=== PATIENT | female | born 1970 | race African-American/Black ===

== ENCOUNTER 2020-05-18 13:59 | Outpatient (REF) | payer OTHER, SELFPAY ==
--- NOTE | 2020-05-18 14:05 | XR_ITS ---
EXAMINATION: XR HIP, RIGHT CLINICAL INFORMATION: Pain COMPARISON: None TECHNIQUE: Two views of the right hip. FINDINGS: Bones and soft tissues are normal. No fracture. Alignment is anatomic. Hip joint space is maintained. XR/XR hip RT min 2V IMPRESSION: Normal right hip.
== END 2020-05-18 14:00 | disposition home or self-care (01) ==
LOC: HO.HMGCX 13:59
PROVIDERS: PCP Internal Medicine; Visit Provider Nurse Practitioner Family
DX: M25.551 Pain in right hip (principal)
CPT/HCPCS: 73502

== ENCOUNTER → 2020-09-28 15:48 | Outpatient (BNVA) | payer OTHER, SELFPAY | PROVIDERS: PCP Internal Medicine; Visit Provider Internal Medicine Pulmonary Disease ==

== ENCOUNTER → 2020-11-16 10:08 | Outpatient (BNVA) | payer OTHER, SELFPAY | PROVIDERS: PCP Internal Medicine; Visit Provider Internal Medicine | DX: S00.03XA Contusion of scalp, initial encounter (principal); W18.31XA Fall on same level due to stepping on an object, initial encounter | CPT/HCPCS: 99202 ==

== ENCOUNTER → 2021-01-07 14:38 | Outpatient (BNVA) | payer OTHER, SELFPAY | PROVIDERS: PCP Internal Medicine; Referring Provider Internal Medicine; Visit Provider Internal Medicine Cardiovascular Disease | DX: R00.2 Palpitations (principal); E78.5 Hyperlipidemia, unspecified; E06.3 Autoimmune thyroiditis; J45.20 Mild intermittent asthma, uncomplicated; Z91.09 Other allergy status, other than to drugs and biological substances; Z88.5 Allergy status to narcotic agent; Z91.011 Allergy to milk products; Z79.899 Other long term (current) drug therapy | CPT/HCPCS: 93005 ==

== ENCOUNTER 2021-01-14 09:02 | Outpatient (REF) | payer OTHER, SELFPAY ==
[2021-01-14 11:46] LABS: Cholesterol 243 mg/dL; HDL Cholesterol 72 mg/dL; LDL Cholesterol Calculated 160 mg/dl; Triglycerides 56 mg/dL
[2021-01-14 12:08] LABS: Free T4 (Free Thyroxine) 0.84 ng/dL (0.71-1.85); Thyroid Stimulating Hormone 2.89 uIU/mL (0.32-4.0)
[2021-01-15 09:37] LABS: Thyroid Peroxidase Antibodies 336 IU/mL (<9)
== END 2021-01-14 09:03 | disposition home or self-care (01) ==
LOC: HO.HMGCLDS 09:02
PROVIDERS: PCP Internal Medicine; Visit Provider Internal Medicine
DX: J45.20 Mild intermittent asthma, uncomplicated (principal); E06.3 Autoimmune thyroiditis; E78.5 Hyperlipidemia, unspecified; E03.9 Hypothyroidism, unspecified
CPT/HCPCS: 36415; 80061; 84439; 84443; 86376

== ENCOUNTER → 2021-01-29 11:23 | Outpatient (BNVA) | payer OTHER, SELFPAY | PROVIDERS: PCP Internal Medicine; Visit Provider Internal Medicine Pulmonary Disease ==

== ENCOUNTER 2021-02-17 07:56 | Outpatient (REF) | payer OTHER, SELFPAY ==
--- NOTE | ~2021-02-17 | MM_ITS ---
EXAMINATION: MM SCREENING DIGITAL BREAST TOMOSYNTHESIS, BILATERAL CLINICAL INFORMATION: Screening. Asymptomatic. The lifetime risk of breast cancer based on the Tyrer-Cuzick Model is 20.9%. Additional annual screening with breast MRI may be of benefit in women with a Score of 20% or greater. COMPARISON: Mammography: June 13, 2020 and studies dating back to June 17, 2014 TECHNIQUE: Digital breast tomosynthesis is performed in both the craniocaudal and mediolateral oblique views along with computer-aided detection (CAD). Synthesized 2D images are generated from the tomosynthesis. FINDINGS: The breasts are heterogeneously dense, which may obscure small masses (ACR BI-RADS breast composition Category c). There are no significant masses, abnormal calcifications, or other abnormalities. MM/MM tomosynthesis screening BI IMPRESSION: There are no significant changes from prior study. ASSESSMENT: BI-RADS 1: Negative RECOMMENDATION: Routine annual mammography screening. This patient's information was entered into a reminder system with a target due date for their next mammogram.
== END 2021-02-17 07:57 | disposition home or self-care (01) ==
LOC: HO.MAMMO 07:56
PROVIDERS: PCP Internal Medicine; Visit Provider Obstetrics & Gynecology
DX: Z12.31 Encounter for screening mammogram for malignant neoplasm of breast (principal)
CPT/HCPCS: 77063; 77067

== ENCOUNTER → 2021-05-12 16:05 | Outpatient (BNVA) | payer OTHER, SELFPAY | PROVIDERS: PCP Internal Medicine; Visit Provider Internal Medicine Pulmonary Disease ==

== ENCOUNTER → 2021-05-27 15:11 | Outpatient (BNVA) | payer OTHER, SELFPAY | PROVIDERS: PCP Internal Medicine; Referring Provider Internal Medicine; Visit Provider Internal Medicine Cardiovascular Disease ==

== ENCOUNTER 2021-07-22 16:00 | Outpatient (RCR) | payer OTHER, SELFPAY ==
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
== END 2021-08-19 15:35 | disposition home or self-care (01) ==
LOC: HO.PT 16:00
PROVIDERS: PCP Internal Medicine; Visit Provider Internal Medicine
DX: M54.50 Low back pain, unspecified (principal); M79.604 Pain in right leg; Z87.828 Personal history of other (healed) physical injury and trauma
CPT/HCPCS: 97110; 97112; 97161

== ENCOUNTER → 2021-10-13 15:32 | Outpatient (BNVA) | payer OTHER, SELFPAY | PROVIDERS: PCP Internal Medicine; Visit Provider Internal Medicine Pulmonary Disease | DX: Z13.89 Encounter for screening for other disorder (principal) ==

== ENCOUNTER 2022-01-01 07:51 | Outpatient (REF) | payer OTHER, SELFPAY ==
[2022-01-01 09:18] LABS: Alanine Aminotransferase 15 U/L (0-31); Anion Gap 9 (12-20); Aspartate Amino Transferase 15 U/L (5-31); Blood Urea Nitrogen 14 mg/dL (9-16); Calcium 9.6 mg/dL (8.4-10.2); Carbon Dioxide 29 mmol/L (22-29); Chloride 107 mmol/L (96-108); Cholesterol 267 mg/dL; Estimated Glomerular Filt Rate > 60; Glucose Fasting 91 mg/dL (60-99); HDL Cholesterol 92 mg/dL; LDL Cholesterol Calculated 165 mg/dl; Potassium 4.3 mmol/L (3.3-5.1); Sodium 141 mmol/L (135-145); Triglycerides 51 mg/dL
[2022-01-01 10:02] LABS: Thyroid Stimulating Hormone 4.86 uIU/mL (0.32-4.0)
[2022-01-01 10:33] LABS: Vitamin D 25-OH Total 9.6 ng/mL (>30)
[2022-01-03 17:26] LABS: Thyroid Peroxidase Antibodies 425 IU/mL (<9)
== END 2022-01-01 07:52 | disposition home or self-care (01) ==
LOC: HO.LAB 07:51
PROVIDERS: PCP Internal Medicine; Visit Provider Internal Medicine
DX: E03.9 Hypothyroidism, unspecified (principal); E78.5 Hyperlipidemia, unspecified; E06.3 Autoimmune thyroiditis; Z78.0 Asymptomatic menopausal state
CPT/HCPCS: 36415; 80048; 80061; 82306; 84439; 84443; 84450; 84460; 86376

== ENCOUNTER 2022-02-28 11:19 | Outpatient (REF) | payer OTHER, SELFPAY ==
--- NOTE | ~2022-02-28 | MM_ITS ---
EXAMINATION: MM SCREENING DIGITAL BREAST TOMOSYNTHESIS, BILATERAL CLINICAL INFORMATION: Screening. Asymptomatic. The lifetime risk of breast cancer based on the Tyrer-Cuzick Model is 19.8%. COMPARISON: Mammography: February 17, 2021 and studies dating back to April 03, 2010 TECHNIQUE: Digital breast tomosynthesis is performed in both the craniocaudal and mediolateral oblique views along with computer-aided detection (CAD). Synthesized 2D images are generated from the tomosynthesis. FINDINGS: The breasts are heterogeneously dense, which may obscure small masses (ACR BI-RADS breast composition Category c). There are no significant masses, abnormal calcifications, or other abnormalities. MM/MM tomosynthesis screening BI IMPRESSION: No mammographic evidence of malignancy. ASSESSMENT: BI-RADS 1: Negative RECOMMENDATION: Routine annual mammography screening. This patient's information was entered into a reminder system with a target due date for their next mammogram.
== END 2022-02-28 11:20 | disposition home or self-care (01) ==
LOC: HO.MAMMO 11:19
PROVIDERS: PCP Internal Medicine; Visit Provider Internal Medicine
DX: Z12.31 Encounter for screening mammogram for malignant neoplasm of breast (principal)
CPT/HCPCS: 77063; 77067

== ENCOUNTER 2022-06-13 11:47 | Outpatient (REF) | payer OTHER, SELFPAY ==
[2022-06-13 12:51] LABS: Influenza A PCR NEGATIVE (Negative); Influenza B PCR NEGATIVE (Negative); Resp Syncy Virus RNA Qual PCR NEGATIVE (Negative); SARS COV2 PCR INHOUSE NEGATIVE (Negative)
== END 2022-06-13 11:48 | disposition home or self-care (01) ==
LOC: HO.LNP 11:47
PROVIDERS: Visit Provider Emergency Medicine
DX: Z20.822 Contact with and (suspected) exposure to COVID-19 (principal)
CPT/HCPCS: 0241U

== ENCOUNTER → 2022-07-18 09:23 | Outpatient (BNVA) | payer OTHER, SELFPAY | PROVIDERS: PCP Internal Medicine; Visit Provider Nurse Practitioner Family | DX: R00.2 Palpitations (principal) | CPT/HCPCS: 93005 ==

== ENCOUNTER 2022-07-23 08:31 | Outpatient (REF) | payer OTHER, SELFPAY ==
[2022-07-23 09:44] LABS: Cholesterol 283 mg/dL; HDL Cholesterol 86 mg/dL; LDL Cholesterol Calculated 187 mg/dl; Triglycerides 53 mg/dL
[2022-07-23 10:00] LABS: Free T4 (Free Thyroxine) 0.81 ng/dL (0.71-1.85); Thyroid Stimulating Hormone 4.11 uIU/mL (0.32-4.0); Vitamin D 25-OH Total 21.7 ng/mL (>30)
[2022-07-25 17:28] LABS: Thyroid Peroxidase Antibodies 325 IU/mL (<9)
== END 2022-07-23 08:32 | disposition home or self-care (01) ==
LOC: HO.LAB 08:31
PROVIDERS: PCP Internal Medicine; Visit Provider Internal Medicine
DX: E03.9 Hypothyroidism, unspecified (principal); E78.5 Hyperlipidemia, unspecified; E06.3 Autoimmune thyroiditis; E55.9 Vitamin D deficiency, unspecified
CPT/HCPCS: 36415; 80061; 82306; 84439; 84443; 86376

== ENCOUNTER → 2022-08-02 10:34 | Outpatient (REF) | payer OTHER, SELFPAY ==
--- NOTE | 2022-08-02 10:36 | HM_ITS ---
Conclusion: 1. Patient was monitored for total period of 2 days and 23 hours 2. Baseline rhythm was normal sinus rhythm with average heart of 80 beats per minute 3. No significant pauses or bradycardia noted 4. Total of 6464 PVCs accounting for 1.9% of total beats account for frequent PVCs 5. Patient reported 14 events, with symptoms of fluttering in chest that correlated with isolated PVCs MTDD
== END ==
LOC: HO.CARD 10:34
PROVIDERS: PCP Internal Medicine; Visit Provider Nurse Practitioner Family
DX: R00.2 Palpitations (principal)
CPT/HCPCS: 93242

== ENCOUNTER → 2022-08-24 14:17 | Outpatient (BNVA) | payer OTHER, SELFPAY | PROVIDERS: PCP Internal Medicine; Referring Provider Internal Medicine; Visit Provider Nurse Practitioner Family | DX: Z13.89 Encounter for screening for other disorder (principal) ==

== ENCOUNTER → 2022-09-19 07:39 | Outpatient (REF) | payer OTHER, SELFPAY ==
--- NOTE | 2022-09-19 07:57 | CA_ITS ---
Acquisition Time: 2022-09-19 08:49:51 Total Exercise Time: 00:08:08 Test Indications: PVCS Medications: Protocol: FREDI Max HR: 169 BPM 101% of Pred: 167 BPM Max BP: 158/086 mmHG Max Work Load: 10.1 METS Exercise stress test with exercise 8 min 8 sec of Freid protocol, achieving 101% of MPHR, with mild sob, no chest discomfort, without arrythmia, with normotensive response to exercise, without EKG changes meeting criteria for ischemia. Test reviewed with Dr Brown. Referred By: Kassie Cruz Overread By: KASSIE CRUZ
--- NOTE | 2022-09-19 07:57 | CA_ITS ---
Transthoracic Echocardiogram Patient (Last, First, Middle): Kristin Teresa, Gender: Female Date of : 1970 Age: 52 Procedure Date: 09/19/2022 Procedure Type: Transthoracic Echocardiogram Location: OP Height: 162.56 cm Weight: 64.86 kg BSA: 1.70 m2 Heart Rate: 58 bpm BP: 110 / 70 mmHg Batt Machine Operator: NISA Referring MD: Kassie Cruz LITHOGRAPHY CONTACT WORKER-Hailey Symptoms: I49.3 - Ventricular premature depolarization Study Quality: Adequate ECG Rhythm: Bradycardia Conclusions: - The left ventricular systolic function is normal. The calculated ejection fraction is 59% by biplane method. - No obvious valvular pathology seen on this study. Findings Left Ventricle Normal left ventricular cavity size. There is normal left ventricular wall thickness. The left ventricular systolic function is normal. The calculated ejection fraction is 59% by biplane method. There is no evidence of regional wall motion abnormalities. Diastolic function is normal for age. LV peak GLS -17.8%. Right Ventricle Normal right ventricular cavity size and systolic function. Atria Both atria are normal in size. Aortic Valve There is a normal trileaflet aortic valve. There is no aortic valve stenosis. There is no aortic valve regurgitation. Mitral Valve The mitral valve appears normal. There is no mitral valve regurgitation. There is no mitral valve stenosis. Pulmonic Valve The pulmonic valve is likely normal. Tricuspid Valve Normal tricuspid valve structure. There is trace tricuspid valve regurgitation. There is no evidence of pulmonary hypertension. Great Vessels The aortic annulus, sinuses of valsalva, and asc aorta are normal in size. Venous The inferior vena cava is normal in size and collapses greater than 50% with inspiration. Pericardium/Pleural There is no evidence of pericardial effusion. Prior Study Comparison No significant change compared to prior study dated: 11/07/2016. Recommendations, Care & Conclusions No obvious valvular pathology seen on this study. Measurements 2D Linear Measurements IVSd: 0.92 0.6-0.9/0.6-1.0 cm LVIDd: 4.32 3.9-5.3/4.2-5.9 cm LVIDd Index: 2.54 2.4-3.2/2.2-3.1 cm/m2 LVIDs: 2.81 2.0-3.6 cm LVPWd: 0.92 0.7-1.1 cm LA Diam: 3.30 2.7-3.8/3.0-4.0 cm LAIDs Index: 1.94 1.5-2.3 cm/m2 LV Mass: 159.13 67-162/88-224 g LV Mass Index: 93.61 43-95/49-115 g/m2 LVOT Diam: 2.00 3.0+(-)1.3 cm 2D Systolic Function EF 4C: 58.00 >55% EF 2C: 57.30 >55% EF BiP: 59.20 >55% Mitral Valve MV Pk E: 0.59 MV PK A: 0.53 MV Decel Time: 141.00 E/A: 1.10 E'Lateral: 10.00 E'Medial: 8.59 E/E' Med: 6.90 E/E' Lat: 5.90 PHT: 41.00 MVA PHT: 5.37 Decel Amador: 4.20 Aortic Valve AoV Pk Dao: 1.16 AoV Pk Grad: 5.00 MATILDE: 2.23 LVOT LVOT Pk Dao: 0.82 LVOT Mn Dao: 0.59 LVOT VTI: 0.20 LVOT Pk Grad: 3.00 LVOT Mn Grad: 2.00 LVOT Diam: 2.00 LVOT Area: 3.14 Diastolic Function MV Pk E: 0.59 MV Pk A: 0.53 E/A: 1.10 E'Medial: 8.59 E/E' Med: 6.90 E' Laterial: 10.00 E/E' Lat: 5.90 Right Ventricle TAPSE (mm): 18.20 TVS' Dao: 9.90 Tricuspid Valve TR Pk Dao: 1.80 TR Pk Grad: 13.00 RA Press: 3.00 RVSP: 16.00 Great Vessels Aorta Sinus of Valsalva: 2.80 2.0-3.5 cm Ao Asc: 2.60 2.1-3.4 cm Pulmonary Valve PV Pk Dao: 0.83 Peak PV Grad: 3.00 Updated in Other Vendor System with Status of Final Ananth Hidalgo MD electronically signed on 09/19/2022 8:55:20 AM with status of Final
== END ==
LOC: HO.CARD 07:39
PROVIDERS: PCP Internal Medicine; Visit Provider Nurse Practitioner Family
DX: I49.3 Ventricular premature depolarization (principal); R00.2 Palpitations
CPT/HCPCS: 93017; 93306; 93356

== ENCOUNTER 2022-10-22 08:02 | Outpatient (REF) | payer OTHER, SELFPAY ==
[2022-10-22 08:13] LABS: MANUAL DIFF FLAG NO
[2022-10-22 08:32] LABS: Basophils Percent Auto 1.1 % (0-2); Eosinophils Percent Auto 0.8 % (0-4); Hematocrit 39.3 % (37.0-47.0); Hemoglobin 12.4 g/dl (12.0-16.0); Imm Gran Abs Auto 0.01 X10*3/uL (0.00-0.03); Imm Gran Pct Auto 0.3 % (0.0-0.4); Lymphocytes Absolute Auto 1.7 X10*3/uL (1.2-4.9); Lymphocytes Percent Auto 45.3 % (20-40); Mean Corpuscular HGB Conc 31.6 g/dl (31.0-35.0); Mean Corpuscular Hemoglobin 26.4 pg (27.0-33.0); Mean Corpuscular Volume 83.6 fL (80.0-98.0); Mean Platelet Volume 11.1 fL (9.4-12.3); Monocytes Absolute Auto 0.3 X10*3/uL (0.1-1.2); Monocytes Percent Auto 8.2 % (2-11); Neutrophils Absolute Auto 1.6 x10*3/uL (2.0-8.3); Neutrophils Percent Auto 44.3 % (45-73); Platelet Count 191 X10*3/uL (160-400); Red Cell Distribution Width 14.2 % (11.0-16.0); White Blood Count 3.6 X10*3/uL (4.8-10.8)
[2022-10-22 09:06] LABS: Alanine Aminotransferase 16 U/L (0-31); Anion Gap 10 (12-20); Aspartate Amino Transferase 15 U/L (5-31); Blood Urea Nitrogen 17 mg/dL (9-16); Calcium 9.2 mg/dL (8.4-10.2); Carbon Dioxide 28 mmol/L (22-29); Chloride 110 mmol/L (96-108); Cholesterol 198 mg/dL; Estimated Glomerular Filt Rate 59; Glucose Fasting 89 mg/dL (60-99); HDL Cholesterol 76 mg/dL; LDL Cholesterol Calculated 115 mg/dl; Potassium 4.5 mmol/L (3.3-5.1); Sodium 143 mmol/L (135-145); Triglycerides 36 mg/dL
[2022-10-22 09:22] LABS: Free T4 (Free Thyroxine) 0.89 ng/dL (0.71-1.85); Thyroid Stimulating Hormone 4.04 uIU/mL (0.32-4.0); Vitamin D 25-OH Total 24.9 ng/mL (>30)
[2022-10-24 13:23] LABS: Thyroid Peroxidase Antibodies 415 IU/mL (<9)
== END 2022-10-22 08:03 | disposition home or self-care (01) ==
LOC: HO.LAB 08:02
PROVIDERS: PCP Internal Medicine; Visit Provider Internal Medicine
DX: E06.3 Autoimmune thyroiditis (principal); E55.9 Vitamin D deficiency, unspecified; E78.5 Hyperlipidemia, unspecified; R00.2 Palpitations; E03.9 Hypothyroidism, unspecified
CPT/HCPCS: 36415; 80048; 80061; 82306; 84439; 84443; 84450; 84460; 85025; 86376

== ENCOUNTER 2022-10-25 12:46 | Outpatient (AMB) | payer OTHER, SELFPAY ==
--- NOTE | 2022-10-25 13:40 | A.OFFPC_ITS ---
Vital Signs 10/25/22 13:50 Height 5 ft 4 in Weight 142 lb 6 oz BMI 24.4 BP 110/74 Blood Pressure Location Rt brachial Position Sitting Pulse 72 Pulse Source Pulse Oximeter Pulse Oximetry (%) 100 Oxygen Delivery Method Room Air Intake Visit Reasons: 3m ffup lipids, thyroid after labs done Intake Note: Pt is here today for her 3 months f/u thyroid Allergies codeine [CODEINE] Allergy (Unknown, Verified 06/27/23 10:19) HALLUCINATION lactose [LACTOSE] Allergy (Unknown, Verified 06/27/23 10:19) DIARRHEA Medication List - Last Reconciled 09/03/23 by Trudi Duron MD albuterol sulfate 90 mcg/actuation 2 puffs inhalation Q4-6H PRN diazepam 2 mg PO .30 min before flying PRN ergocalciferol (vitamin D2) 1,250 mcg PO QWEEK 3 months fexofenadine 180 mg PO DAILY PRN fluticasone propion-salmeterol 230-21 mcg/actuation (Advair HFA) 2 puffs inhalation Q12H fluticasone propionate 220 mcg/actuation (Flovent HFA) 2 puffs inhalation BID 30 days ibuprofen 800 mg PO TID inhalational spacing device (InspiraChamber spacer) As directed ipratropium-albuterol 0.5 mg-3 mg(2.5 mg base)/3 mL 3 mL inhalation QID PRN ipratropium-albuterol 0.5 mg-3 mg(2.5 mg base)/3 mL 3 mL inhalation QID PRN ketorolac 10 mg PO TID PRN 5 days levothyroxine 25 mcg PO DAILY lidocaine 5% 1 patch topical DAILY methocarbamol 750 mg PO BEDTIME PRN rosuvastatin 5 mg PO 3XW 3 months Tobacco use date assessed: 10/25/22 HPI 3m ffup lipids, thyroid after labs done HPI Details 53-year-old lady here today for follow-u p on her hypothyroidism, has Victorina's thyroiditis, and hyperlipidemia. Has been compliant with taking her medications, no complaints at present time. [facility] Medical History (Updated 09/03/23 @ 18:38 by Trudi Duron MD) Premature ventricular beat Low back pain radiating to right lower extremity Victorina's thyroiditis Flying phobia Mild intermittent asthma Environmental and seasonal allergies Dyslipidemia Surgical History No pertinent past surgical history Family History Mother HTN (hypertension) Breast cancer Brother Renal failure Sister Rheumatoid arthritis Substance abuse Mental health disorder Substance use disorder Father Unknown family medical history Social History Housing: House Alcohol intake: never Patient Tobacco Use Status: Never used Tobacco e-Cigarette/Vaping Use: Never Used service: No Current occupational status: employed Cognitive needs: No Hearing needs: No Vision needs: Yes Questionnaire PHQ-9 Over the last 2 weeks, how often have you been bothered by any of the following problems? 1. Little interest or pleasure in doing things: not at all 2. Feeling down, depressed, or hopeless: not at all 3. Trouble falling or staying asleep, or sleeping too much: not at all 4. Feeling tired or having little energy: not at all 5. Poor appetite or overeating: not at all 6. Feeling bad about yourself - or that you are a failure or have let yourself or your family down: not at all 7. Trouble concentrating on things, such as reading the newspaper or watching television: not at all 8. Moving or speaking so slowly that other people could have noticed. Or the opposite - being so fidgety or restless that you have been moving around a lot more than usual: not at all 9. Thoughts that you would be better off or of hurting yourself in some way: not at all Total score: 0 Depression Screening Interpretation: Negative 12018 - PHQ-9 Billing: Yes Source: Developed by Drs. Bala Torres, Leni Meadows, Raudel Sauer and colleagues, with an educational florecita from [employer]. Thrive Questionnaire Declines Thrive assessment: No Date Thrive assessed: 10/25/22 I am a: Patient What is your living situation today?: I have a steady place to live Within the past 12 months, did the food you bought not last and you didn't have the money to get more?: Never true Within the past 12 months, did you worry whether your food would run out before you got money to buy more?: Never true Do you have trouble paying for medicines?: No Do you have trouble getting transportation to medical appointments?: No Do you have trouble paying your heating and electricity bill?: No Do you have trouble taking care of your child, family member or friend?: No Do you have trouble with day-to-day activities such as bathing, preparing meals, shopping, managing finances, etc.?: No Are you currently unemployed and looking for a job?: No Are you interested in more education?: No AUDIT C Alcohol Use Questionnaire (AUDIT-C) 1. How often do you have a drink containing alcohol?: Never Total Score: 0 CARLOS-7 AMB Questionnaire CARLOS-7 Date CARLOS - 7 assessed: 10/25/22 Feeling nervous, anxious, or on edge: 0 = Not at all Not being able to stop or control worryin = Not at all Worrying too much about different things: 0 = Not at all Trouble relaxin = Not at all Being so restless that it is hard to sit still: 0 = Not at all Becoming easily annoyed or irritable: 0 = Not at all Feeling afraid as if something awful might happen: 0 = Not at all Total CARLOS-7 score (0-4 normal; 5-9 mild; 10-14 moderate; 15-21 severe): 0 Source: Developed by Drs. Bala Torres, Leni Meadows, Raudel Sauer and colleagues, with an educational florecita from [employer]. CARLOS-7 Assessment Billing CAROLS-7 Assessment Tool: CARLOS-7 Assessment 71277 Review of Systems Const Denies fatigue, Denies lethargy and Denies malaise Eyes Denies blurry vision ENT Denies nasal congestion and Denies post nasal drip Card Denies chest pain, Denies pedal edema, Denies dyspnea and Denies orthopnea Resp Denies cough, Denies excessive phlegm production, Denies dyspnea and Denies wheezing GI Denies abdominal pain and Denies heartburn Denies abnormal menses, Denies hematuria, Denies urinary frequency, Denies genital lesions, Denies dysuria and Denies urinary incontinence Musc Denies myalgias, Denies arthralgias and Denies joint swelling Skin/Breast Denies rash Neuro Denies seizure-like activity and Denies Sensory deficit (Neuro) Psych Reports no additional complaints Endo Denies fatigue and Denies heat intolerance Randy/Lymph Denies easy bruising Aller/Immun Denies seasonal rhinorrhea and Denies wheezing Physical exam (Primary Care) Vital Signs: Last Vital Signs Pulse 72 10/25/22 13:50 BP 110/74 10/25/22 13:50 Pulse Ox 100 10/25/22 13:50 Oxygen Delivery Method Room Air 10/25/22 13:50 BMI result Body Mass Index 24.4 Tobacco/Smoking Status: Tobacco use Status Tobacco use date assessed 10/25/22 10/25/22 13:45 Patient Tobacco Use Status Never used Tobacco 10/25/22 13:41 e-Cigarette/Vaping Use Never Used 10/25/22 13:41 PHQ-9: PHQ-9 Score PHQ-9: Total score 0 10/25/22 14:26 Depression Screening Interpretation: Negative Thrive Assessment: Date of Thrive Assessment Date Thrive assessed 10/25/22 10/25/22 13:48 Const Other: Alert oriented x3, no acute distress, ambulatory with normal gait Orientation/consciousness: patient oriented x3 [facility] Head: Yes normocephalic Eyes General: appearance normal, both eyes and all related structures Neck Other: Supple, no lymphadenopathy, thyroid gland nontender nonpalpable Resp Effort & Inspection: normal respiratory effort and able to speak in complete sentences Auscultation: clear to auscultation bilaterally Cardio Other: S1-S2 present regular rate and rhythm GI Palpation (GI): Soft to palpation, nontender and no guarding Auscultation: normal bowel sounds Back/Spine/Pelvis Back: No back tenderness Skin General skin exam: no rashes or lesions noted Neuro General: patient oriented x3, gait normal, moves all extremities, Normal light touch and pain sensation and no focal motor deficits Sensory Exam: No Sensory deficit (Neuro) Extrem General: Yes full ROM, Yes no joint enlargement, Yes no pedal edema, Yes no calf tenderness and Yes normal gait Psych Appearance: grossly normal and well kempt Mental Status: mental status grossly normal Speech and movement: Normal speech and movement present Affect: normal affect Results Reviewed Results Reviewed: RUN: 09/03/23 0455 PAGE 1 [facility] [address] [place] [id number] Structural Steel Detailer: Edgar Cummings M.D. Specimen Inquiry Name: Kristin Teresa Age/Sex: 53/F : 1970 Unit#: [id number] Attend Dr: Nikolas Almanza MD Re06/25/23 Status: [facility]P [facility] SPEC : [id number] HENRY: 06/25/23 STATUS: COMP REQ : [id number] RECD: 06/25/[address] [facility] [address]: Douglas Ya COMP: 06/25/23 ENTERED: 06/25/23 [facility] DR: Trudi Duron MD ORDERED: CBC Auto Diff Test Result Flag Reference WBC 4.0 L 4.8-10.8 X10*3/uL RBC 4.83 4.20-5.50 X10*6/uL HGB 12.8 12.0-16.0 g/dl HCT 40.1 37.0-47.0 % MCV 83.0 80.0-98.0 fL MCH 26.5 L 27.0-33.0 pg MCHC 31.9 31.0-35.0 g/dl RDW 14.3 11.0-16.0 % PLT 198 160-400 X10*3/uL ENTERED: 10/22/[address]: ORDERED: Met Prof Fast, AST, ALT, Lipid Panel, Vitamin D 25-OH, Free T4, TSH Test Result Flag Reference Sodium 143 135-145 mmol/L Potassium 4.5 3.3-5.1 mmol/L CL 110 H 96-108 mmol/L CO2 28 22-29 mmol/L Gap 10 L 12-20 BUN 17 H 9-16 mg/dL Creat 0.99 0.5-1.4 mg/dL EGFR 59 NOTE: For -[place] individuals, multiply the result by 1.210. Chronic Kidney Disease: Estimated GFR < 60 mL/min/1.73m2 Severe Kidney Disease: Estimated GFR < 15 mL/min/1.73m2 FBS 89 60-99 mg/dL CA 9.2 8.4-10.2 mg/dL AST (GOT) 15 5-31 U/L ALT (GPT) 16 0-31 U/L Triglyceride 36 mg/dL Desirable Triglyceride: less than 150 mg/dL Borderline High Triglyceride 150-199 mg/dL High Triglyceride: 200-499 mg/dL Very High Triglyceride: greater than or equal to 5OO mg/dL Chol 198 mg/dL Desirable Cholesterol: less than 200 mg/dL Borderline High Cholesterol: 200-239 mg/dL High Cholesterol: greater than 239 mg/dL LDL Calculated 115 mg/dl Desirable LDL: less than 100 mg/dL Near Optimal/Above Optimal LDL: 110-129 mg/dL Borderline High LDL: 130-159 mg/dL High LDL: 160-189 mg/dL Very High LDL: greater than or equal to 190 mg/dL HDL 76 mg/dL Desirable HDL: greater than 40 mg/dL Note: This HDL assay may give artificially low results in patients with liver disease. Vit D 25-OH Tot 24.9 >30 ng/mL Health Based Reference Values* < 20 ng/mL Deficient 20-30 ng/mL Insufficient > 30 ng/mL Sufficient *Jesika STERN. N Engl J Med. 2007;357:266-280 Care must be taken in interpreting Vitamin D results from different laboratories and methodologies. Published data demonstrated that results from patients undergoing hemodialysis may show a negative bias when tested with various automated 25-OH vitamin D assays when compared to LC-MS/MS. When testing samples from patients whose predominant form of Vitamin D is Vitamin D2, such as patients receiving Vitamin D2 supplementation, results that are subtherapeutic should be confirmed with another method such as LC-MS/MS. Free T4 0.89 0.71-1.85 ng/dL TSH 3rd Gen. 4.04 H 0.32-4.0 uIU/mL Note: A sustained TSH level above 2.5 uIU/mL may warrant further investigation. 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 (2) Dyslipidemia: Code(s): E78.5 - Hyperlipidemia, unspecified Plan: Reviewed recent fasting lipid profile with patient with levels within normal limits . Continue with rosuvastatin 5 mg taken 3 times a week , in addition to adherence to low-cholesterol diet and regular exercise, at least 30 minutes 3 to 4 times a week. Advised patient to make healthy food choices, eat more fruits, vegetables, whole grains, wild caught fish and low-fat dairy. Limit amount of meat and fried or fatty food products, as well as processed foods and fast foods. (3) Vitamin D deficiency: Code(s): E55.9 - Vitamin D deficiency, unspecified Plan: Recent fasting labs showed deficient vitamin-D level. Prescription sent for cholecalciferol 37709 units per capsule to take once a week for the next 3 months. Once finished taking prescription, advised to continue taking [id number] vitamin-D 3 at 2000 units daily Medications: Changed From ergocalciferol (vitamin D2) x 3 months 1,250 mcg PO QWEEK To ergocalciferol (vitamin D2) x 3 months 1,250 mcg PO QWEEK 13 caps 0RF 3 months Refilled rosuvastatin 5 mg PO 3XW 39 tabs 3RF 3 months Coding Level of Care Code Est Pt Level 4 (06431) Diagnoses Victorina's thyroiditis E06.3 Dyslipidemia E78.5 Vitamin D deficiency E55.9 Additional Codes CARLOS-7 Assessment Billing - CARLOS-7 Assessment Tool: CARLOS-7 Assessment 68878 ([id number])
[2022-10-25 13:50] VITALS: BP 110/74; PULSE 72; O2SAT 100; BMI 24.4
== END 2022-10-25 14:27 | disposition home or self-care (01) ==
LOC: HO.HMGC 12:46
PROVIDERS: PCP Internal Medicine; Visit Provider Internal Medicine
DX: E06.3 Autoimmune thyroiditis (principal); E78.5 Hyperlipidemia, unspecified; E55.9 Vitamin D deficiency, unspecified
CPT/HCPCS: 99214; 99499

== ENCOUNTER → 2022-11-02 14:44 | Outpatient (BNVA) | payer OTHER, SELFPAY | PROVIDERS: PCP Internal Medicine; Visit Provider Physician Assistant Medical | DX: S46.811A Strain of other muscles, fascia and tendons at shoulder and upper arm level, right arm, initial encounter (principal); X50.3XXA Overexertion from repetitive movements, initial encounter | CPT/HCPCS: 99202 ==

== ENCOUNTER → 2022-11-09 15:47 | Outpatient (BNVA) | payer OTHER, SELFPAY | PROVIDERS: PCP Internal Medicine; Visit Provider Internal Medicine | DX: S46.811D Strain of other muscles, fascia and tendons at shoulder and upper arm level, right arm, subsequent encounter (principal); X50.3XXD Overexertion from repetitive movements, subsequent encounter | CPT/HCPCS: 99213 ==

== ENCOUNTER 2023-03-02 16:00 | Outpatient (REF) | payer OTHER, SELFPAY | END 2023-03-02 16:01 | disposition home or self-care (01) | LOC: HO.MAMMO 16:00 | PROVIDERS: PCP Internal Medicine; Visit Provider Obstetrics & Gynecology | DX: Z12.31 Encounter for screening mammogram for malignant neoplasm of breast (principal) | CPT/HCPCS: 77063; 77067 ==

== ENCOUNTER → 2023-03-02 16:00 | Outpatient (BNV) | payer OTHER, SELFPAY | PROVIDERS: PCP Internal Medicine; Visit Provider Radiology Diagnostic Radiology | DX: Z12.31 Encounter for screening mammogram for malignant neoplasm of breast (principal) | CPT/HCPCS: 77063; 77067 ==

== ENCOUNTER 2023-04-24 06:52 | Outpatient (REF) | payer OTHER, SELFPAY ==
[2023-04-24 08:16] LABS: Alanine Aminotransferase 16 U/L (0-31); Anion Gap 14 (12-20); Aspartate Amino Transferase 15 U/L (5-31); Blood Urea Nitrogen 13 mg/dL (9-16); Calcium 9.5 mg/dL (8.4-10.2); Carbon Dioxide 25 mmol/L (22-29); Chloride 107 mmol/L (96-108); Cholesterol 197 mg/dL (<200); Estimated Glomerular Filt Rate > 60; Glucose Fasting 90 mg/dL (60-99); HDL Cholesterol 67 mg/dL (>40); LDL Cholesterol Calculated 118 mg/dL (<100); Potassium 3.8 mmol/L (3.3-5.1); Sodium 142 mmol/L (135-145); TSH reflex Free T4 4.93 uIU/mL (0.32-4.0); Triglycerides 62 mg/dL (<150); Vitamin D 25-OH Total 24.9 ng/mL (>30)
[2023-04-24 08:47] LABS: Free T4 (Free Thyroxine) 0.85 ng/dL (0.71-1.85)
== END 2023-04-24 06:53 | disposition home or self-care (01) ==
LOC: HO.LAB 06:52
PROVIDERS: PCP Internal Medicine; Visit Provider Internal Medicine
DX: E06.3 Autoimmune thyroiditis (principal); E55.9 Vitamin D deficiency, unspecified; E78.5 Hyperlipidemia, unspecified
CPT/HCPCS: 36415; 80048; 80061; 82306; 84439; 84443; 84450; 84460

== ENCOUNTER 2023-05-02 10:23 | Outpatient (AMB) | payer OTHER, SELFPAY ==
--- NOTE | 2023-05-02 10:35 | MHC.PC.OV ---
Vital Signs 05/02/23 10:37 Height 5 ft 4 in Weight 148 lb BMI 25.4 BP 120/86 Blood Pressure Location Lt brachial Position Sitting Pulse 64 Pulse Source Pulse Oximeter Pulse Oximetry (%) 100 Oxygen Delivery Method Room Air Intake Visit Reasons: 6m follow up Intake Note: pt is here to follow for her lab results Allergies codeine [CODEINE] Allergy (Unknown, Verified 05/02/23 10:50) HALLUCINATION lactose [LACTOSE] Allergy (Unknown, Verified 05/02/23 10:50) DIARRHEA Medication List - Last Reconciled 05/02/23 by Trudi Duron MD albuterol sulfate 90 mcg/actuation 2 puffs inhalation QID PRN diazepam 2 mg PO .30 min before flying PRN ergocalciferol (vitamin D2) 1,250 mcg PO QWEEK 3 months fexofenadine 180 mg PO DAILY PRN fluticasone propionate 220 mcg/actuation (Flovent HFA) 2 puffs inhalation BID 30 days inhalational spacing device (InspiraChamber spacer) As directed ipratropium-albuterol 0.5 mg-3 mg(2.5 mg base)/3 mL 3 mL inhalation QID PRN rosuvastatin 5 mg PO 3XW 3 months Tobacco use date assessed: 05/02/23 Dental Screening Dental Screen Date: 05/02/23 Did you have a dental visit in the last 12 months?: Yes Did you have a dental problem in the last 6 months where you did not have access to dental care?: No Was dental information given to patient?: Patient has dentist HPI 6m follow up HPI Details 53-year-old lady with dyslipidemia, she will is thyroiditis, has environmental seasonal allergies, mild intermittent asthma, here today for her follow-up. She had recent fasting labs done which showed her electrolytes, renal function, fasting glucose, fasting lipids with are within normal limits, but her vitamin-D is deficient, and her TSH is mildly elevated within normal free T4. Her TPO antibodies however are elevated. Patient has been complaining of feeling tired than usual, but no alteration in bowel habits or change in her menstrual cycle reported. She will be traveling again by plane in June, would like a refill on her diazepam, which she takes as needed for acute anxiety attacks when flying [facility] Medical History (Updated 05/03/23 @ 11:06 by Trudi Duron MD) Premature ventricular beat Low back pain radiating to right lower extremity Victorina's thyroiditis Flying phobia Mild intermittent asthma Environmental and seasonal allergies Dyslipidemia Surgical History No pertinent past surgical history Family History Mother HTN (hypertension) Breast cancer Brother Renal failure Sister Rheumatoid arthritis Substance abuse Mental health disorder Substance use disorder Father Unknown family medical history Social History Housing: House Alcohol intake: never Patient Tobacco Use Status: Never used Tobacco e-Cigarette/Vaping Use: Never Used service: No Current occupational status: employed Cognitive needs: No Hearing needs: No Vision needs: Yes Questionnaire PHQ-9 Over the last 2 weeks, how often have you been bothered by any of the following problems? 1. Little interest or pleasure in doing things: not at all 2. Feeling down, depressed, or hopeless: not at all 3. Trouble falling or staying asleep, or sleeping too much: not at all 4. Feeling tired or having little energy: not at all 5. Poor appetite or overeating: not at all 6. Feeling bad about yourself - or that you are a failure or have let yourself or your family down: not at all 7. Trouble concentrating on things, such as reading the newspaper or watching television: not at all 8. Moving or speaking so slowly that other people could have noticed. Or the opposite - being so fidgety or restless that you have been moving around a lot more than usual: not at all 9. Thoughts that you would be better off or of hurting yourself in some way: not at all Total score: 0 Depression Screening Interpretation: Negative Depression Screening Done: Yes 26239 - PHQ-9 Billing: Yes Source: Developed by Drs. Bala Torres, Leni Meadows, Raudel Sauer and colleagues, with an educational florecita from [employer]. Thrive Questionnaire Date Thrive assessed: 10/25/22 CARLOS-7 AMB Questionnaire CARLOS-7 Date CARLOS - 7 assessed: 04/18/23 Source: Developed by Drs. Bala Torres, Leni Meadows, Raudel Sauer and colleagues, with an educational florecita from [employer]. Review of Systems Const Reports as per HPI and Denies weakness Eyes Denies change in vision ENT Denies dizziness Card Denies chest pain, Denies chest pain with activity, Denies syncope, Denies rapid heart rate, Denies pedal edema, Denies edema, Denies leg edema, Denies lightheadedness, Denies palpitations, Denies dyspnea, Denies dyspnea on exertion and Denies orthopnea Resp Denies cough, Denies dyspnea and Denies dyspnea on exertion GI Denies hematochezia and Denies change in stool character Reports no additional complaints Musc Denies abnormal gait, Denies muscle cramps, Denies muscle weakness, Denies numbness, Denies radiating pain into limb and Denies tingling Skin/Breast Denies breast pain, Denies breast mass, Denies new lesions and Denies rash Neuro Denies abnormal gait, Denies dizziness, Denies syncope, Denies numbness, Denies Sensory deficit (Neuro), Denies tingling and Denies weakness Psych Reports no additional complaints Endo Denies palpitations Physical exam (Primary Care) Vital Signs: Last Vital Signs Pulse 64 05/02/23 10:37 BP 120/86 05/02/23 10:37 Pulse Ox 100 05/02/23 10:37 Oxygen Delivery Method Room Air 05/02/23 10:37 BMI result Body Mass Index 25.4 Tobacco/Smoking Status: Tobacco use Status Tobacco use date assessed 05/02/23 05/02/23 10:41 Patient Tobacco Use Status Never used Tobacco 05/02/23 10:41 e-Cigarette/Vaping Use Never Used 05/02/23 10:41 Depression Screening Interpretation: Negative Thrive Assessment: Date of Thrive Assessment Date Thrive assessed 10/25/22 05/02/23 10:41 Const Other: Alert oriented x3, no acute distress, ambulatory with normal gait Orientation/consciousness: patient oriented x3 HENMT Head: Yes normocephalic Eyes General: appearance normal, both eyes and all related structures Neck Other: Supple, no lymphadenopathy, thyroid gland nontender nonpalpable Resp Effort & Inspection: normal respiratory effort and able to speak in complete sentences Auscultation: clear to auscultation bilaterally Cardio Other: S1-S2 present regular rate and rhythm GI Palpation (GI): Soft to palpation, nontender and no guarding Auscultation: normal bowel sounds Back/Spine/Pelvis Back: No back tenderness Skin General skin exam: no rashes or lesions noted Neuro General: patient oriented x3, gait normal, moves all extremities, Normal light touch and pain sensation and no focal motor deficits Sensory Exam: No Sensory deficit (Neuro) Extrem General: Yes full ROM, Yes no joint enlargement, Yes no pedal edema, Yes no calf tenderness and Yes normal gait Psych Appearance: grossly normal and well kempt Mental Status: mental status grossly normal Speech and movement: Normal speech and movement present Affect: normal affect Results Reviewed Results Reviewed: NTERED: 04/24/23 YASMEEN WALKER: ORDERED: Met Prof Fast, AST, ALT, Lipid Panel, Vitamin D 25-OH, Free T4, TSH Rflx Test Result Flag Reference Site Sodium 142 135-145 mmol/L Potassium 3.8 3.3-5.1 mmol/L CL 107 96-108 mmol/L CO2 25 22-29 mmol/L Gap 14 12-20 BUN 13 9-16 mg/dL Creat 0.81 0.5-1.4 mg/dL EGFR > 60 NOTE: For -Bulgar[place] individuals, multiply the result by 1.210. Chronic Kidney Disease: Estimated GFR < 60 mL/min/1.73m2 Severe Kidney Disease: Estimated GFR < 15 mL/min/1.73m2 FBS 90 60-99 mg/dL CA 9.5 8.4-10.2 mg/dL AST (GOT) 15 5-31 U/L ALT (GPT) 16 0-31 U/L Triglyceride 62 <150 mg/dL Desirable Triglyceride: less than 150 mg/dL Borderline High Triglyceride 150-199 mg/dL High Triglyceride: 200-499 mg/dL Very High Triglyceride: greater than or equal to 5OO mg/dL Cholesterol 197 <200 mg/dL Desirable Cholesterol: less than 200 mg/dL Borderline High Cholesterol: 200-239 mg/dL High Cholesterol: greater than 239 mg/dL LDL Calculated 118 H <100 mg/dL Desirable LDL: less than 100 mg/dL Near Optimal/Above Optimal LDL: 110-129 mg/dL Borderline High LDL: 130-159 mg/dL High LDL: 160-189 mg/dL Very High LDL: greater than or equal to 190 mg/dL HDL 67 >40 mg/dL Desirable HDL: greater than 40 mg/dL Note: This HDL assay may give artificially low results in patients with liver disease. Vit D 25-OH Tot 24.9 >30 ng/mL Health Based Reference Values* < 20 ng/mL Deficient 20-30 ng/mL Insufficient > 30 ng/mL Sufficient *Jesika STERN. N Engl J Med. 2007;357:266-280 Care must be taken in interpreting Vitamin D results from different laboratories and methodologies. Published data demonstrated that results from patients undergoing hemodialysis may show a negative bias when tested with various automated 25-OH vitamin D assays when compared to LC-MS/MS. When testing samples from patients whose predominant form of Vitamin D is Vitamin D2, such as patients receiving Vitamin D2 supplementation, results that are subtherapeutic should be confirmed with another method such as LC-MS/MS. Free T4 0.85 0.71-1.85 ng/dL TSH 4.93 H 0.32-4.0 uIU/mL Assessment and Plan Assessment & Plan (1) Vitamin D deficiency: Code(s): E55.9 - Vitamin D deficiency, unspecified Plan: Prescription sent for vitamin-D 350 1000 units per capsule to take once a week for the next 3 months. Has finished taking the prescription, continue taking [id number] vitamin-D 3 at 2000 units daily. Will repeat another vitamin-D level in 3 months (2) Dyslipidemia: Code(s): E78.5 - Hyperlipidemia, unspecified Plan: Reviewed recent fasting lipid profile with patient with levels within normal limits . Continue with rosuvastatin 5 mg 3 times a week , in addition to adherence to low-cholesterol diet and regular exercise, at least 30 minutes 3 to 4 times a week. Advised patient to make healthy food choices, eat more fruits, vegetables, whole grains, wild caught fish and low-fat dairy. Limit amount of meat and fried or fatty food products, as well as processed foods and fast foods. Follow-up scheduled with repeat fasting lipid panel in 3 months. (3) Victorina's thyroiditis: Code(s): E06.3 - Autoimmune thyroiditis Plan: Will start on low-dose Synthroid 25 mcg taken once a day in a.m. an hour before eating breakfast, recheck levels again in 3 months, lab ordered (4) Mild intermittent asthma: Code(s): J45.20 - Mild intermittent asthma, uncomplicated Qualifiers: Asthma complication type: uncomplicated Qualified Code(s): J45.20 - Mild intermittent asthma, uncomplicated Plan: Stable controlled on present treatment, continue with Flovent HFA and uses albuterol inhaler as needed. 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 Plan: Prescription sent for diazepam to take as directed for episodes of anxiety attacks when fly Orders: Orders Thyroid Stimulating Hormone 07/17/23 E06.3 - Autoimmune thyroiditis, E55.9 - Vitamin D deficiency, unspecified, E78.5 - Hyperlipidemia, unspecified Thyroid Peroxidase Antibodies 07/17/23 E06.3 - Autoimmune thyroiditis, E55.9 - Vitamin D deficiency, unspecified, E78.5 - Hyperlipidemia, unspecified Free T4 (Free Thyroxine) 07/17/23 E03.9 - Hypothyroidism, unspecified, E06.3 - Autoimmune thyroiditis, E55.9 - Vitamin D deficiency, unspecified, E78.5 - Hyperlipidemia, unspecified Lipid Panel 07/17/23 E06.3 - Autoimmune thyroiditis, E55.9 - Vitamin D deficiency, unspecified, E78.5 - Hyperlipidemia, unspecified Vitamin D 25-OH Total 07/17/23 E06.3 - Autoimmune thyroiditis, E55.9 - Vitamin D deficiency, unspecified, E78.5 - Hyperlipidemia, unspecified Alanine Aminotransferase 07/17/23 E06.3 - Autoimmune thyroiditis, E55.9 - Vitamin D deficiency, unspecified, E78.5 - Hyperlipidemia, unspecified Aspartate Amino Transferase 07/17/23 E06.3 - Autoimmune thyroiditis, E55.9 - Vitamin D deficiency, unspecified, E78.5 - Hyperlipidemia, unspecified Medications: New Synthroid (levothyroxine) 25 mcg PO DAILY 30 tabs 3RF NS Refilled ergocalciferol (vitamin D2) x 3 months 1,250 mcg PO QWEEK 3 months 13 caps 0RF diazepam 2 mg PO .30 min before flying PRN 10 tabs 0RF anxiety Coding Level of Care Code Est Pt Level 4 (27590) Diagnoses Vitamin D deficiency E55.9 Dyslipidemia E78.5 Victorina's thyroiditis E06.3 Mild intermittent asthma without complication J45.20 Asthma complication type: uncomplicated Flying phobia F40.243
[2023-05-02 10:37] VITALS: BP 120/86; PULSE 64; O2SAT 100; BMI 25.4
== END 2023-05-02 11:08 | disposition home or self-care (01) ==
PROVIDERS: PCP Internal Medicine; Visit Provider Internal Medicine
DX: E55.9 Vitamin D deficiency, unspecified (principal); E78.5 Hyperlipidemia, unspecified; E06.3 Autoimmune thyroiditis; J45.20 Mild intermittent asthma, uncomplicated; F40.243 Fear of flying
CPT/HCPCS: 99214

== ENCOUNTER 2023-05-10 08:49 | Outpatient (AMB) | payer OTHER, SELFPAY ==
--- NOTE | 2023-05-10 08:54 | A.OFFVIS_ITS ---
Intake Vital Signs 05/10/23 08:55 Height 5 ft 4 in Weight 147 lb BMI 25.2 BP 110/62 Blood Pressure Location Rt brachial Position Sitting Pulse 84 Pulse Source Pulse Oximeter Pulse Oximetry (%) 98 Oxygen Delivery Method Room Air Intake Visit Reasons: Asthma Flare up Pillow Agent Required: No Ore Miner Blasting: Ore Miner Blasting offered & declined Accompanied by: Self / Same As Patient Allergies codeine [CODEINE] Allergy (Unknown, Verified 05/10/23 09:01) HALLUCINATION lactose [LACTOSE] Allergy (Unknown, Verified 05/10/23 09:01) DIARRHEA Medication List - Last Reconciled 05/10/23 by Claudette Chatman LPN diazepam 2 mg PO .30 min before flying PRN ergocalciferol (vitamin D2) 1,250 mcg PO QWEEK 3 months fexofenadine 180 mg PO DAILY PRN fluticasone propionate 220 mcg/actuation (Flovent HFA) 2 puffs inhalation BID 30 days inhalational spacing device (InspiraChamber spacer) As directed ipratropium-albuterol 0.5 mg-3 mg(2.5 mg base)/3 mL 3 mL inhalation QID PRN rosuvastatin 5 mg PO 3XW 3 months Synthroid (levothyroxine) 25 mcg PO DAILY NS HPI Asthma Flare up HPI Details Kristin is a pleasant 53 year old female, lifetime nonsmoker, followed for mild to moderate persistent asthma and environmental allergies.? At baseline she is moderately controlled on Flovent, Shira, and duo nebs as needed. Today she presents for an acute visit. She reports symptoms of chest tightness, dyspnea and dry cough for the past two weeks. She does note that cough has become productive with clear sputum over the last two days. Denies chest congestion. 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 She has been using Flovent, duonebs twice daily and also has been using nebulized budesonide which was prescribed from a telehealth appt with minimal improvement in symptoms. She took two home COVID tests which were negative. [facility] Medical History (Updated 05/03/23 @ 11:06 by Trudi Duron MD) Premature ventricular beat Low back pain radiating to right lower extremity Victorina's thyroiditis Flying phobia Mild intermittent asthma Environmental and seasonal allergies Dyslipidemia Surgical History No pertinent past surgical history Family History Mother HTN (hypertension) Breast cancer Brother Renal failure Sister Rheumatoid arthritis Substance abuse Mental health disorder Substance use disorder Father Unknown family medical history Social History Housing: House Alcohol intake: never Patient Tobacco Use Status: Never used Tobacco e-Cigarette/Vaping Use: Never Used service: No Current occupational status: employed Cognitive needs: No Hearing needs: No Vision needs: Yes Review of Systems Const Denies chills, Denies excessive sweating, Denies fever(s), Denies headache(s) and Denies night sweats Eyes Denies dry eyes, Denies irritation and Denies itchy eyes ENT Reports Normal hearing present, Denies headache(s), Denies nasal congestion, Denies nasal discharge, Denies post nasal drip and Denies sore throat Card Denies chest pain, Denies chest pain at rest, Denies chest pain with activity, Denies claudication, Denies leg edema, Denies orthopnea and Denies paroxysmal nocturnal dyspnea Resp Denies pain on inspiration, Denies pain with cough and Denies stridor Musc Denies myalgias Neuro Reports Normal hearing present and Denies headache(s) Endo Denies excessive sweating Randy/Lymph Denies lymphadenopathy Aller/Immun Denies itchy eyes and Denies seasonal rhinorrhea Physical Exam Vital Signs: Last Vital Signs Pulse 84 05/10/23 08:55 BP 110/62 05/10/23 08:55 Pulse Ox 98 05/10/23 08:55 Oxygen Delivery Method Room Air 05/10/23 08:55 BMI result Body Mass Index 25.2 Const General: cooperative, no acute distress, well developed and alert Orientation/consciousness: patient oriented x3 Limitations: no limitations HEENT Head: Yes normal to inspection, Yes normocephalic and Yes atraumatic Ears: hearing grossly normal bilaterally and external ears normal Eyes General: appearance normal, both eyes and all related structures Eyelids: Yes eyelids normal Sclerae: sclerae normal EOM: EOMs intact bilaterally Neck Neck: Yes normal visual inspection and Yes no lymphadenopathy Lymphatic: no lymphadenopathy noted Chest Chest palpation & inspection: normal inspection of the chest Resp Other: poor air movement bilaterally and post exhalation cough which improved after duoneb. Effort & Inspection: normal respiratory effort, able to speak in complete sentences, no stridor, not tachypneic, no tripod positioning and no use of accessory muscles Cardio Jugular venous distension: no JVD Rate: regular rate Rhythm: regular rhythm Skin Other: warm, dry General skin exam: no rashes or lesions noted Neuro General: patient oriented x3 Cranial nerves: Yes Normal hearing present Cognition (Neuro): normal cognition Gait exam (Neuro): Normal gait present Extrem General: Yes normal to inspection, Yes capillary refill normal, Yes no clubbing, cyanosis or edema and Yes no pedal edema Psych Appearance: grossly normal and well kempt Speech and movement: Normal speech and movement present and Clear speech present Affect: normal affect Attitude: cooperative Thought process: Normal thought process present Thought content: Normal thought content present Insight: Good insight present (Psych) Judgement: Good judgement present (Psych) Office Procedures Nebulizer Treatment Nebulizer Treatment [id number]/[id number] RX initial, or Nebulizer Subsequent Treatment Office Meds ipratropium 0.5 mg-albuterol 3 mg (2.5 mg base)/3 mL nebulization soln Performing Provider: Sadaf Delaney NP [place] [facility] Administered by: Claudette Chatman LPN on 05/10/23 09:29 Dose Route Admin Location Dispensed Lot Number Expiration Date [facility] Testing Specialist 3 mL inhalation 3 mL [id number] 09/06/24 [id number] [facility] Assessment & Plan Assessment & Plan (1) Mild intermittent asthma: Code(s): J45.20 - Mild intermittent asthma, uncomplicated Qualifiers: Asthma complication type: uncomplicated Qualified Code(s): J45.20 - Mild intermittent asthma, uncomplicated (2) Environmental and seasonal allergies: Code(s): J30.89 - Other allergic rhinitis Plan Kristin presents with persistent cough, dyspnea and chest tightness for the past two weeks. She was given a nebulizer treatment in office with symptomatic improvement as well as increased air movement on exam and resolution of cough. No wheezing appreciated. Advised patient to discontinue use of budesonide. Will change Flovent HFA to Advair HFA as well as send in albuterol MDI. Reviewed package insert which does not disclose any lactose component. Patient aware if GI upset occurs to discontinue use and call office. At this time, prednisone is not warranted but patient aware to call if symptoms persist and seek emergent care if they worsen. All questions were answered and patient is in agreement of plan. Will follow up with Dr. Rae for her regularly scheduled appointment or sooner if needed. Orders: Orders AMB Nebulizer Treatment Today J30.89 - Other allergic rhinitis, J45.20 - Mild intermittent asthma, uncomplicated Medications: New albuterol sulfate 90 mcg/actuation 2 puffs inhalation Q4-6H PRN 1 ea 3RF shortness of breath or wheezing fluticasone propion-salmeterol 230-21 mcg/actuation (Advair HFA) 2 puffs inhalation Q12H 1 ea 3RF Refilled ipratropium-albuterol 0.5 mg-3 mg(2.5 mg base)/3 mL 3 mL inhalation QID PRN 90 mL 0RF for wheezing J45.30 - Mild persistent asthma, uncomplicated Coding Level of Care Code Est Pt Level 3 (68785) Diagnoses Mild intermittent asthma without complication J45.20 Asthma complication type: uncomplicated Environmental and seasonal allergies J30.89 CPT Codes Nebulizer Treatment - Nebulizer Treatment, initial or subsequent: [id number] zer/MDI RX initial, or Nebulizer Subsequent Treatment ([id number])
[2023-05-10 08:55] VITALS: BP 110/62; PULSE 84; O2SAT 98; BMI 25.2
== END 2023-05-10 09:46 | disposition home or self-care (01) ==
LOC: HO.HPSW 08:49
PROVIDERS: PCP Internal Medicine; Visit Provider Nurse Practitioner Family
DX: J45.20 Mild intermittent asthma, uncomplicated (principal); J30.89 Other allergic rhinitis
CPT/HCPCS: 99213

== ENCOUNTER → 2023-05-10 08:49 | Outpatient (BNVA) | payer OTHER, SELFPAY | PROVIDERS: PCP Internal Medicine; Visit Provider Nurse Practitioner Family | DX: J45.20 Mild intermittent asthma, uncomplicated (principal); J30.89 Other allergic rhinitis; Z91.09 Other allergy status, other than to drugs and biological substances | CPT/HCPCS: 94640 ==

== ENCOUNTER → 2023-06-16 10:42 | Outpatient (BNVA) | payer OTHER, SELFPAY | PROVIDERS: PCP Internal Medicine; Visit Provider Internal Medicine | DX: S90.31XA Contusion of right foot, initial encounter (principal); S43.401A Unspecified sprain of right shoulder joint, initial encounter; W18.30XA Fall on same level, unspecified, initial encounter | CPT/HCPCS: 99204 ==

== ENCOUNTER → 2023-06-22 09:38 | Outpatient (BNVA) | payer OTHER, SELFPAY | PROVIDERS: PCP Internal Medicine; Visit Provider Physician Assistant | DX: S33.9XXA Sprain of unspecified parts of lumbar spine and pelvis, initial encounter (principal); W18.30XA Fall on same level, unspecified, initial encounter | CPT/HCPCS: 99213 ==

== ENCOUNTER 2023-06-25 05:37 | Emergency (ER) | payer OTHER, SELFPAY ==
[2023-06-25 05:38] VITALS: BP 137/70; PULSE 69; RESP 18; TEMP 36.5; O2SAT 100; BMI 25.1
[2023-06-25 06:06] VITALS: BP 144/77; PULSE 77; RESP 22; TEMP 36.5; O2SAT 100
--- NOTE | 2023-06-25 06:07 | PC.NURSE ---
Pt ca&ox4, no signs of distress. Pt reports left eye pain that started at 0300 with sinus pressure. Pt reports taking sudafed and benadryl Eye acuity exam done with corrective lenses left eye 20/70, right eye 20/30. Plan of care ongoing.
--- NOTE | 2023-06-25 08:56 | ED.GENADULT ---
HPI - General Adult General Chief complaint: Eye Problems Stated complaint: upper respiatory Time Seen by Provider: 06/25/23 07:17 Source: patient Mode of arrival: ambulatory Limitations: no limitations History of Present Illness HPI narrative: This is a 53-year-old female presenting with left eye pain and, congestion in her nose that started at 03:00 suddenly, eye pain is intermittent in nature and she describes as ?contractions ?, intermittent strong and uncomfortable. She reports that she woke up she thought she maybe had conjunctivitis due to some redness in her eye, applied a warm compress to affected eye however not improving. Patient states she has never had anything like this before. She denies pain with eye movements. She denies previous issues with her eyes or surgeries. Denies fevers, chills, nausea, vomiting, abdominal pain headache, vision changes, dizziness, weakness. Related Data Previous Rx's Medication Instructions Recorded inhalational spacing device #1 ea 07/16/20 (InspiraChamber spacer) fluticasone propionate 220 2 puff inhalation BID 30 days #1 ea 07/07/22 mcg/actuation HFA aerosol inhaler (Flovent HFA) fexofenadine 180 mg tablet 180 mg PO DAILY PRN for allergies 10/25/22 #90 tabs rosuvastatin 5 mg tablet 5 mg PO 3XW 3 months #39 tabs 10/25/22 ipratropium 0.5 mg-albuterol 3 mg 3 ml inhalation QID PRN for 01/02/23 (2.5 mg base)/3 mL nebulization wheezing #180 mL soln diazepam 2 mg tablet 2 mg PO .30 min before flying PRN 05/03/23 anxiety #10 tabs ergocalciferol (vitamin D2) 1,250 1,250 mcg PO QWEEK 3 months #13 05/03/23 mcg (50,000 unit) capsule caps albuterol sulfate 90 mcg/actuation 2 puff inhalation Q4-6H PRN 05/10/23 aerosol inhaler shortness of breath or wheezing #1 ea fluticasone propionate 230 2 puff inhalation Q12H #1 ea 05/10/23 mcg-salmeterol 21 mcg/actuation HFA inhaler (Advair HFA) ipratropium 0.5 mg-albuterol 3 mg 3 ml inhalation QID PRN for 05/10/23 (2.5 mg base)/3 mL nebulization wheezing #90 mL soln levothyroxine 25 mcg tablet 25 mcg PO DAILY #30 tabs 06/09/23 ibuprofen 800 mg tablet 800 mg PO TID pain swelling #60 06/16/23 tabs cyclobenzaprine 5 mg tablet 5 mg PO BEDTIME PRN muscle spasm 06/22/23 #20 tabs lidocaine 5 % topical patch 1 patch topical DAILY #30 ea 06/22/23 azithromycin 250 mg tablet See Rx Instructions PO .COMPLEX #6 06/25/23 tabs ketorolac 10 mg tablet 10 mg PO TID PRN pain 5 days #15 06/25/23 tabs Allergies Allergy/AdvReac Type Severity Reaction Status Date / Time codeine [CODEINE] Allergy Unknown HALLUCINATI Verified 06/25/23 05:46 ON lactose [LACTOSE] Allergy Unknown DIARRHEA Verified 06/25/23 05:46 Review of Systems Review of Systems: Constitutional : No Weight loss, No Fever, No Chills, No Fatigue, No Malaise ENT/Mouth : No sore throat, No Rhinorrhea Eyes: + Eye Pain, No Swelling, + Redness Cardiovascular : No Chest Pain, No SOB, No Dyspnea on Exertion, No Orthopnea, No Edema, No Palpitations Respiratory : No Cough, No Sputum, No Wheezing Gastrointestinal : No Nausea, No Vomiting, No Diarrhea, No Constipation, No abdominal Pain, No Hematochezia, No Melena Genitourinary : No Dysuria, No Urinary Frequency, No Hematuria, Musculoskeletal : No joint pain, No Myalgias, No Joint Swelling Skin : No Skin Lesions, No rash Neuro : No Weakness, No Numbness, No Dizziness, No Headache Psych : No Anxiety/Panic, No Depression All other systems reviewed and are negative Yes all other systems are reviewed and are negative [facility] Past Medical History Attestation statement: The following information was validated with the patient. Source: old records reviewed and nursing notes reviewed Medical History (Updated 06/25/23 @ 11:09 by BRIDGET Dhaliwal) Premature ventricular beat Low back pain radiating to right lower extremity Victorina's thyroiditis Flying phobia Mild intermittent asthma Environmental and seasonal allergies Dyslipidemia Surgical History No pertinent past surgical history Family History Family History Mother HTN (hypertension) Breast cancer Brother Renal failure Sister Rheumatoid arthritis Substance abuse Mental health disorder Substance use disorder Father Unknown family medical history Social History Social History (Updated 05/10/23 @ 09:05 by Claudette Chatman LPN) Housing: House Alcohol intake: never Patient Tobacco Use Status: Never used Tobacco Smoked in Last 30 Days: No e-Cigarette/Vaping Use: Never Used Use of substances other than those prescribed or required for medical reasons: No Advance Directives: No Advance Directives Information Provided: No service: No Current occupational status: employed Cognitive needs: No Hearing needs: No Vision needs: Yes Physical Exam ED Vital Signs: Vital Signs - 24 hr 06/25/23 05:38 06/25/23 06:06 06/25/23 09:23 Temperature 97.7 F 97.7 F 98 F Pulse Rate 69 77 70 Respiratory Rate 18 22 H 18 Blood Pressure 137/70 144/77 H 137/86 Pulse Oximetry 100 100 100 Oxygen Delivery Method Room Air Room Air Room Air 06/25/23 11:15 Temperature 98 F Pulse Rate 73 Respiratory Rate 16 Blood Pressure 135/62 Pulse Oximetry 98 Oxygen Delivery Method Room Air BMI result Body Mass Index 25.1 vss Appearance: Alert.? Oriented X3.? No acute distress.? Head: Normocephalic, atraumatic, no step-offs or deformities Eyes: Pupils equal, round and reactive to light.? - Intraocular pressure 17 ( right eye), 18 ( left eye) - EOMI and pain free - Fluorescein stain- no uptake, no sidels sign, abrasion, ulcer at this time -Visual acuity- 20/40 (right and left) 20/30 ( b/l) ENT: Pharynx normal.? Neck: Normal inspection.? Neck supple.? CVS: Normal heart rate and rhythm.? Pulses normal.? Respiratory: No respiratory distress.? Breath sounds normal.? Abdomen: Soft and nontender.? Skin: Skin warm and dry.? Normal skin color.? Normal skin turgor.? Extremities: No lower extremity edema.? No calf ttp. 5/5 strength to bilateral upper and lower extremities Back: No midline tenderness, no C-spine tenderness, full range of motion, no CVA tenderness bilaterally Neuro: Oriented X 3.? No motor deficit.? No sensory deficit. CN 2-12 intact Course Reevaluation(s) Reevaluation #1: CBC with chronic leukopenia. Again supporting that unlikely that this is orbital cellulitis. Chemistry unremarkable. Normal inflammatory markers. Influenza, RSV, COVID negative. Patient does state that sometimes her sinus infections feel like this is not so bad she is prone to sinus infections she states she usually takes a Z-Víctor and it improves. Lower seems stain unremarkable normal visual acuity, normal eye pressures. Funduscopic exam 2-1 cup to disc ratio normal vessels in all directions, no signs of hemorrhage. Educated patient on diagnosis and treatment plan, answered all question, patient verbalizes understanding. At this time patient will be discharged home, advised to return with new or worsening symptoms. Educated on worrisome signs and symptoms and when to return. At this time I feel comfortable discharge home. Time: 11:14 Medications Administered Discontinued Medications Generic Name Dose Route Start Last Admin Trade Name Freq PRN Reason Stop Dose Admin Acetaminophen 650 mg 06/25/23 08:59 06/25/23 09:32 Acetaminophen 325 Mg Tablet PO 06/25/23 09:00 650 mg ONCE ONE Administration Fluorescein Sodium 1 strip 06/25/23 08:59 06/25/23 11:15 Fluorescein Sodium Strip EYE-BOTH 06/25/23 09:00 1 strip ONCE ONE Administration Ketorolac Tromethamine 30 mg 06/25/23 11:09 06/25/23 11:18 Ketorolac Tromethamine 15 Mg/Ml Vial IM 06/25/23 11:10 30 mg ONCE ONE Administration Tetracaine HCl 1 drop 06/25/23 08:59 06/25/23 11:14 Tetracaine Hcl/Pf 0.5% Oph Katja 4 Ml Drops EYE-BOTH 06/25/23 09:00 Not Given ONCE ONE Medical Decision Making Medical Decision Making MDM Narrative: 09 53-year-old female presents with complaints of nasal congestion, left eye pain that started at 03:00 suddenly. This is never happened to her before Physical exam extraocular movements intact pain-free. I pressure left eye 18, right eye 17, no periorbital or orbital cellulitis, normal visual acuity, no uptake on fluorescein stain. History and physical exam concerning for possible sinusitis versus viral illnesss versus conjunctivitis. Unlikely venous or arterial occlusion of optic nerve, retinal detachment, acute closed angle glaucoma, wet macular degeneration, foreign body in eye, corneal abrasion, corneal ulcer, globe rupture. Plan at this time will obtain basic labs ESR CRP, viral testing I discussed this case with the physician technical support assistant. Nikolas Almanza MD. Differential Diagnosis Differential Diagnoses: The differential diagnosis associated with the presentation includes History and physical exam concerning for possible sinusitis versus viral illnesss versus conjunctivitis. Unlikely venous or arterial occlusion of optic nerve, retinal detachment, acute closed angle glaucoma, wet macular degeneration, foreign body in eye, corneal abrasion, corneal ulcer, globe rupture. Admission/Observation Consideration of admission/observation: Escalation of care including admission/observation considered Lab Data MDM Lab Attestation statement: I reviewed the patient's lab results. 06/25/23 09:16 06/25/23 09:16 Labs: Lab Results 06/25/23 06/25/23 Range/Units 07:41 09:16 WBC 4.0 L (4.8-10.8) X10*3/uL RBC 4.83 (4.20-5.50) X10*6/uL Hgb 12.8 (12.0-16.0) g/dl Hct 40.1 (37.0-47.0) % MCV 83.0 (80.0-98.0) fL MCH 26.5 L (27.0-33.0) pg MCHC 31.9 (31.0-35.0) g/dl RDW 14.3 (11.0-16.0) % Plt Count 198 (160-400) X10*3/uL MPV 11.1 (9.4-12.3) fL Immature Gran % (Auto) 0.3 (0.0-0.4) % Neut % (Auto) 51.3 (45-73) % Lymph % (Auto) 39.0 (20-40) % [place] % (Auto) 8.1 (2-11) % Eos % (Auto) 0.3 (0-4) % Baso % (Auto) 1.0 (0-2) % Lymph # (Auto) 1.5 (1.2-4.9) X10*3/uL [place] # (Auto) 0.3 (0.1-1.2) X10*3/uL Eos # (Auto) 0.0 (0.0-0.4) X10*3/uL Baso # (Auto) 0.0 (0.0-0.2) X10*3/uL Abs Immat Gran (auto) 0.01 (0.00-0.03) X10*3/uL Absolute Neuts (auto) 2.0 (2.0-8.3) x10*3/uL Absolute Nucleated RBC 0.000 (0.0-0.012) X10*3/uL Nucleated RBC % (auto) 0.0 (0.0-0.2) /100WBC ESR 7 (0-20) MM/HR Sodium 144 (135-145) mmol/L Potassium 4.0 (3.3-5.1) mmol/L Chloride 109 H (96-108) mmol/L Carbon Dioxide 24 (22-29) mmol/L Anion Gap 15 (12-20) BUN 12 (9-16) mg/dL Creatinine 0.75 (0.5-1.4) mg/dL Estim Creat Clear Calc 80.2 Estimated GFR > 60 Random Glucose 93 (60-115) mg/dL Calcium 9.7 (8.4-10.2) mg/dL Total Bilirubin 0.2 (0.0-1.0) mg/dL AST 15 (5-31) U/L ALT 11 (0-31) U/L Alkaline Phosphatase 95 (39-117) U/L C-Reactive Protein 0.21 (< or = 0.50) mg/dL Total Protein 7.7 (6.5-8.0) g/dL Albumin 4.4 (3.5-5.0) g/dL Beta HCG, Quant 4 mIU/mL Influenza Type A (PCR) NEGATIVE (Negative) Influenza Type B (PCR) NEGATIVE (Negative) RSV RNA Qual (PCR) NEGATIVE (Negative) SARS-CoV-2 RNA (RT-PCR) NEGATIVE (Negative) Critical Care Time Critical Care Time Critical Care Time: No Discharge Plan Discharge Clinical Impression: Acute left eye pain, Sinusitis Patient Disposition: Home, Self-Care Instructions: Sinusitis (ED), Eye Pain (ED) Additional Instructions: Take your medications as prescribed. If you were prescribed antibiotics today, it is important that you take your medication to their entirety, do not skip any doses, do not finish them early. Follow-up with your primary care provider this week. Return to the emergency department with new or worsening symptoms. Such as fevers, chills, chest pain, shortness of breath, nausea, vomiting, dizziness, headache, vision changes, lethargy In case of emergency call 911 Toradol has been sent to your pharmacy, you tolerated this well in the department. Please take this as prescribed do not take this with ibuprofen, or other NSAIDs, do not mix this with alcohol. Side effects of this medication including increased risk for bleeding and possible kidney injury. Prescriptions: New azithromycin 250 mg tablet See Rx Instructions .ROUTE .COMPLEX Qty: 6 0RF Rx Instructions: For 250 mg dose pack: take 500 mg today (day 1), then 250 mg for 4 days (days 2-5) ketorolac 10 mg tablet 10 mg PO TID PRN (Reason: pain) 5 Days Qty: 15 0RF No Action Flovent HFA 220 mcg/actuation HFA aerosol inhaler 2 puff inhalation BID 30 Days Qty: 1 6RF fexofenadine 180 mg tablet 180 mg PO DAILY PRN (Reason: for allergies) Qty: 90 1RF ipratropium-albuterol 0.5 mg-3 mg(2.5 mg base)/3 mL solution for nebulization 3 ml inhalation QID PRN (Reason: for wheezing) Qty: 180 0RF levothyroxine 25 mcg tablet 25 mcg PO DAILY Qty: 30 3RF (DME) InspiraChamber Spacer See Rx Instructions .ROUTE .MEDSUPPLY Qty: 1 0RF Rx Instructions: As directed ergocalciferol (vitamin D2) 1,250 mcg (50,000 unit) capsule 1,250 mcg PO QWEEK 90 Days Qty: 13 0RF Rx Instructions: x 3 months diazepam 2 mg tablet 2 mg PO .30 min before flying PRN (Reason: anxiety) Qty: 10 0RF rosuvastatin 5 mg tablet 5 mg PO 3XW 90 Days Qty: 39 3RF albuterol sulfate 90 mcg/actuation HFA aerosol inhaler 2 puff inhalation Q4-6H PRN (Reason: shortness of breath or wheezing) Qty: 1 3RF ipratropium-albuterol 0.5 mg-3 mg(2.5 mg base)/3 mL solution for nebulization 3 ml inhalation QID PRN (Reason: for wheezing) Qty: 90 0RF fluticasone propion-salmeterol [Advair HFA] 230-21 mcg/actuation HFA aerosol inhaler 2 puff inhalation Q12H Qty: 1 3RF ibuprofen 800 mg tablet 800 mg PO TID Qty: 60 0RF cyclobenzaprine 5 mg tablet 5 mg PO BEDTIME PRN (Reason: muscle spasm) Qty: 20 0RF Rx Instructions: Can take a 2nd dose up to 10 mg lidocaine 5 % adhesive patch,medicated 1 patch topical DAILY Qty: 30 0RF Rx Instructions: leave on most painful area for up to 12 hrs Referrals: Trudi Duron MD [Primary Care Provider] - 2 days Stand Alone Forms: Work/School Release Interventions: ED Discharge Assessment Last Done: 06/25/23 11:24 Discharge Date/Time: 06/25/23 11:25
[2023-06-25 09:02] LABS: Influenza A PCR NEGATIVE (Negative); Influenza B PCR NEGATIVE (Negative); Resp Syncy Virus RNA Qual PCR NEGATIVE (Negative); SARS COV2 PCR INHOUSE NEGATIVE (Negative)
[2023-06-25 09:23] VITALS: BP 137/86; PULSE 70; RESP 18; TEMP 36.6; O2SAT 100
[2023-06-25] MEDS: Acetaminophen 325 MG TABLET 650 MG PO (09:32)
[2023-06-25 09:47] LABS: MANUAL DIFF FLAG NO
--- NOTE | 2023-06-25 09:47 | PC.NURSE ---
attempted multiple pyxises for eye drops, called pharmacy. drawer failure.
--- NOTE | 2023-06-25 09:47 | PC.NURSE ---
pharm sending eye drops
[2023-06-25 09:56] LABS: Eosinophils Percent Auto 0.3 % (0-4); Hematocrit 40.1 % (37.0-47.0); Hemoglobin 12.8 g/dl (12.0-16.0); Imm Gran Abs Auto 0.01 X10*3/uL (0.00-0.03); Imm Gran Pct Auto 0.3 % (0.0-0.4); Lymphocytes Absolute Auto 1.5 X10*3/uL (1.2-4.9); Mean Corpuscular HGB Conc 31.9 g/dl (31.0-35.0); Mean Corpuscular Hemoglobin 26.5 pg (27.0-33.0); Mean Platelet Volume 11.1 fL (9.4-12.3); Monocytes Absolute Auto 0.3 X10*3/uL (0.1-1.2); Monocytes Percent Auto 8.1 % (2-11); Neutrophils Percent Auto 51.3 % (45-73); Platelet Count 198 X10*3/uL (160-400); Red Blood Count 4.83 X10*6/uL (4.20-5.50); Red Cell Distribution Width 14.3 % (11.0-16.0)
[2023-06-25 10:33] LABS: Alanine Aminotransferase 11 U/L (0-31); Albumin Level 4.4 g/dL (3.5-5.0); Alkaline Phosphatase 95 U/L (39-117); Anion Gap 15 (12-20); Aspartate Amino Transferase 15 U/L (5-31); Bilirubin Total 0.2 mg/dL (0.0-1.0); Blood Urea Nitrogen 12 mg/dL (9-16); C Reactive Protein 0.21 mg/dL (< or = 0.50); Calcium 9.7 mg/dL (8.4-10.2); Carbon Dioxide 24 mmol/L (22-29); Chloride 109 mmol/L (96-108); Creatinine Clr Calc Pharmacy 80.2; Estimated Glomerular Filt Rate > 60; Glucose Random 93 mg/dL (60-115); Sodium 144 mmol/L (135-145); Total Protein 7.7 g/dL (6.5-8.0)
[2023-06-25 10:34] LABS: HCG Quantitative 4 mIU/mL
[2023-06-25 10:55] LABS: Erythrocyte Sedimentation Rate 7 MM/HR (0-20)
[2023-06-25 11:15] VITALS: BP 135/62; PULSE 73; RESP 16; TEMP 36.6; O2SAT 98
[2023-06-25] MEDS: Fluorescein Sodium STRIP 1 STRIP EYE-BOTH (11:15)
[2023-06-25] MEDS: Ketorolac Tromethamine 15 MG/ML VIAL 30 MG IM (11:18)
== END 2023-06-25 11:25 | disposition home or self-care (01) ==
PROVIDERS: Physician Assistant; Emergency Provider Emergency Medicine; PCP Internal Medicine
DX: H57.12 Ocular pain, left eye (principal); J32.9 Chronic sinusitis, unspecified; D72.819 Decreased white blood cell count, unspecified; J45.20 Mild intermittent asthma, uncomplicated; E78.5 Hyperlipidemia, unspecified; R09.81 Nasal congestion; Z20.822 Contact with and (suspected) exposure to COVID-19; Z20.828 Contact with and (suspected) exposure to other viral communicable diseases
CPT/HCPCS: 0241U; 36415; 80053; 84702; 85025; 85652; 86140; 96372; 99284; J1885

== ENCOUNTER 2023-06-27 10:15 | Outpatient (AMB) | payer OTHER, SELFPAY ==
[2023-06-27 10:17] VITALS: BP 119/72; PULSE 77; O2SAT 98; BMI 25.5
--- NOTE | 2023-06-27 10:17 | MHC.OFFVIS ---
Intake Vital Signs 06/27/23 10:17 Height 5 ft 4 in Weight 148 lb 12.992 oz BMI 25.5 BP 119/72 Blood Pressure Location Lt brachial Position Sitting Pulse 77 Pulse Source Doppler Pulse Oximetry (%) 98 Oxygen Delivery Method Room Air Intake Visit Reasons: Asthma Allergies codeine [CODEINE] Allergy (Unknown, Verified 06/27/23 10:19) HALLUCINATION lactose [LACTOSE] Allergy (Unknown, Verified 06/27/23 10:19) DIARRHEA HPI Asthma HPI Details 52-year-old lady, lifetime nonsmoker, followed for mild to moderate persistent asthma and environmental allergies.? Patient has been using Advair 230, duo nebs, and albuterol MDI with good control of her underlying symptoms. [facility] Medical History (Updated 06/27/23 @ 10:48 by Felipe Rae MD) Premature ventricular beat Low back pain radiating to right lower extremity Victorina's thyroiditis Flying phobia Mild intermittent asthma Environmental and seasonal allergies Dyslipidemia Surgical History No pertinent past surgical history Family History Mother HTN (hypertension) Breast cancer Brother Renal failure Sister Rheumatoid arthritis Substance abuse Mental health disorder Substance use disorder Father Unknown family medical history Social History Housing: House Alcohol intake: never Patient Tobacco Use Status: Never used Tobacco e-Cigarette/Vaping Use: Never Used service: No Current occupational status: employed Cognitive needs: No Hearing needs: No Vision needs: Yes Review of Systems Const Denies daytime sleepiness, Denies excessive sweating, Denies fatigue, Denies fever(s), Denies lethargy, Denies malaise, Denies night sweats, Denies snoring and Denies weight loss Eyes Denies blurry vision and Denies itchy eyes ENT Denies nasal congestion, Denies post nasal drip, Denies sinus pain, Denies sinus pressure and Denies other ( Thrush) Card Denies chest pain, Denies pedal edema, Denies dyspnea, Denies orthopnea and Denies paroxysmal nocturnal dyspnea Resp Denies cough, Denies hemoptysis, Denies excessive phlegm production, Denies dyspnea, Denies snoring and Denies wheezing GI Denies abdominal pain and Denies heartburn Musc Denies myalgias, Denies arthralgias and Denies joint swelling Skin/Breast Denies rash Neuro Denies memory loss and Denies seizure-like activity Psych Denies abnormal sleep pattern, Denies anxiety and Denies memory loss Endo Denies excessive sweating, Denies fatigue and Denies heat intolerance Randy/Lymph Denies easy bruising Aller/Immun Denies itchy eyes, Denies seasonal rhinorrhea and Denies wheezing Physical Exam Vital Signs: Last Vital Signs Pulse 77 06/27/23 10:17 BP 119/72 06/27/23 10:17 Pulse Ox 98 06/27/23 10:17 Oxygen Delivery Method Room Air 06/27/23 10:17 BMI result Body Mass Index 25.5 Const General: no acute distress and alert Nutritional Appearance: not obese Orientation/consciousness: Other orientation findings ( oriented) HEENT Head: Yes atraumatic Eyes General: appearance normal, both eyes and all related structures Sclerae: sclerae normal EOM: EOMs intact bilaterally Neck Neck: Yes supple Lymphatic: no lymphadenopathy noted Resp Effort & Inspection: normal respiratory effort and no use of accessory muscles Auscultation: clear to auscultation bilaterally Cardio Rate: regular rate Rhythm: regular rhythm Heart sounds: no gallops, no murmurs and no rubs Skin General skin exam: other ( warm) Extrem General: No clubbing, No cyanosis and No edema Assessment & Plan Assessment & Plan (1) Asthma: Code(s): J45.909 - Unspecified asthma, uncomplicated Plan: [id number] persistent asthma well controlled on current regimen of Advair, duo nebs, and albuterol MDI. Continue current regimen. Coding Level of Care Code Est Pt Level 3 (25251) Diagnoses Asthma J45.909
== END 2023-06-27 10:39 | disposition home or self-care (01) ==
PROVIDERS: PCP Internal Medicine; Visit Provider Internal Medicine Pulmonary Disease
DX: J45.909 Unspecified asthma, uncomplicated (principal)
CPT/HCPCS: 99213

== ENCOUNTER → 2023-06-27 10:15 | Outpatient (BNVA) | payer OTHER, SELFPAY | PROVIDERS: PCP Internal Medicine; Visit Provider Internal Medicine Pulmonary Disease | DX: S90.31XA Contusion of right foot, initial encounter (principal); S43.401A Unspecified sprain of right shoulder joint, initial encounter; W18.30XA Fall on same level, unspecified, initial encounter ==

== ENCOUNTER → 2023-07-17 15:10 | Outpatient (BNVA) | payer OTHER, SELFPAY | PROVIDERS: PCP Internal Medicine; Visit Provider Physician Assistant Medical | DX: S39.012D Strain of muscle, fascia and tendon of lower back, subsequent encounter (principal); W18.30XD Fall on same level, unspecified, subsequent encounter | CPT/HCPCS: 99213 ==

== ENCOUNTER → 2023-07-31 15:40 | Outpatient (BNVA) | payer OTHER, SELFPAY | PROVIDERS: PCP Internal Medicine; Visit Provider Physician Assistant Medical | DX: S39.012D Strain of muscle, fascia and tendon of lower back, subsequent encounter (principal); W18.30XD Fall on same level, unspecified, subsequent encounter | CPT/HCPCS: 99213 ==

== ENCOUNTER 2023-08-05 08:22 | Outpatient (REF) | payer OTHER, SELFPAY ==
[2023-08-05 10:24] LABS: Alanine Aminotransferase 14 U/L (0-31); Aspartate Amino Transferase 15 U/L (5-31); Cholesterol 197 mg/dL (<200); HDL Cholesterol 83 mg/dL (>40); LDL Cholesterol Calculated 104 mg/dL (<100); Triglycerides 53 mg/dL (<150)
[2023-08-05 10:44] LABS: Free T4 (Free Thyroxine) 0.84 ng/dL (0.71-1.85); Thyroid Stimulating Hormone 3.17 uIU/mL (0.32-4.0); Vitamin D 25-OH Total 17.7 ng/mL (>30)
[2023-08-07 16:23] LABS: Thyroid Peroxidase Antibodies 407 IU/mL (<9)
== END 2023-08-05 08:23 | disposition home or self-care (01) ==
LOC: HO.LAB 08:22
PROVIDERS: PCP Internal Medicine; Visit Provider Internal Medicine
DX: E03.9 Hypothyroidism, unspecified (principal); E78.5 Hyperlipidemia, unspecified; E06.3 Autoimmune thyroiditis; E55.9 Vitamin D deficiency, unspecified
CPT/HCPCS: 36415; 80061; 82306; 84439; 84443; 84450; 84460; 86376

== ENCOUNTER → 2023-08-21 15:36 | Outpatient (BNVA) | payer OTHER, SELFPAY | PROVIDERS: PCP Internal Medicine; Visit Provider Physician Assistant Medical | DX: S39.012D Strain of muscle, fascia and tendon of lower back, subsequent encounter (principal); W18.30XD Fall on same level, unspecified, subsequent encounter | CPT/HCPCS: 99213 ==

== ENCOUNTER 2023-08-24 15:00 | Outpatient (RCR) | payer OTHER, SELFPAY ==
--- NOTE | 2023-06-26 14:48 | MHC.PT.EP ---
[facility] [place] Office [place] Office [place] Office [address] [phone] F: [phone] F: [phone] F: [phone] F: [phone] Physical Therapy Plan of Care Date of Evaluation: 06/26/23 Date of Surgery: NA Diagnosis: Diffuse back pain, especially L lumbar strain Assessment: Heidi is a 53 year old female who is referred to PT for Diffuse back pain, especially L lumbar strain . She reports of having back pain following a fall on her back at work about 10 days back. She feel on hard bailee. She initially had shoulder and ankle pain but this resolved in a day not has L sided back pain. On PT examination she presented with 6/10 pain on the L side of her back which is present with sit to stand, SLS on L side, rolling in bed and at the end of the day, decreased trunk ROM, decreased muscle strength, altered pelvic symmetry, altered posture and gait. She lives alone and is independent with all ADLS. 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 She would benefit from skilled PT to address the aforementioned impairments and improve tolerance to functional activities. Frequency and Duration: The patient will be seen 2/week for 5 weeks. Short Term Goals: 1. Pt will have 50% decrease in pain which will enable her to roll and perform sit to stand without pain in 2 weeks 2. Pt will be able to move her trunk through all planes of motion without pain which will enable her to dress herself without pain in 3 weeks. Group Home Goals: 1. Pt will demonstrate an increase in muscle strength by 1 grade which will enable her to walk and tolerate a full day of activities without pain in 5 weeks. 2. Pt will be independent with all HEP for symptom management and maintenance following d/c in 5 weeks. Treatment Plan: Modalities to reduce pain, spasms and effusion. Manual therapy to restore motion and function. Therapeutic exercise to improve strength and flexibility. Neuromuscular re-education for posture and balance. Therapeutic activities to return to functional activities of daily living. Electronically signed by: Justina Rapp PT DPT Please sign and return to therapist. Thank you for your referral.
--- NOTE | 2023-09-06 11:13 | MHC.PT.DC ---
[facility] [place] Office [place] Office [place] Office [address] Aba Joe [address] [phone] F: [phone] F: [phone] F: [phone] F: [phone] Physical Therapy Discharge Report Diagnosis: Diffuse back pain, especially L lumbar strain Date of Surgery: NA Date of Evaluation: 06/26/23 Date of Discharge: 09/06/23 Treatments to Date: 13 Cancellations to Date: 0 No Shows to Date: Discharge Status: Achieved Goals Improved Function Independent with HEP Discharge Summary: Heidi completed 13 PT visits and arrived reporting she is feeling 100 times better now compared to before starting PT. Over the past several visits she has plateaued to minimal discomfort and overall feeling fatigued by end of day. She is independent with her home exercise program. The patient was also educated in a gym transition program to work on her progression to increased accountability as per [facility]'s recommendation. The patient was given opportunity to ask questions and all were answered to the best of my knowledge/ability. She is discharged from this physical therapy plan of care with the recommendation to continue with HEP and integrate transition to gym program. Electronically signed by: Justina Rapp, PT DPT Please sign and return to therapist. Thank you for your referral.
== END 2023-09-06 11:14 | disposition home or self-care (01) ==
LOC: HO.PT 15:00
PROVIDERS: PCP Internal Medicine; Visit Provider Physician Assistant Medical
DX: S39.012D Strain of muscle, fascia and tendon of lower back, subsequent encounter (principal)
CPT/HCPCS: 97110; 97112; 97140; 97161; 97164; 97530

== ENCOUNTER → 2023-09-04 15:54 | Outpatient (AMB) | payer OTHER, SELFPAY ==
--- NOTE | 2023-09-04 15:55 | A.OFFPC_ITS ---
Intake Visit Reasons: Go over blood work [phone] Allergies codeine [CODEINE] Allergy (Unknown, Verified 09/04/23 16:19) HALLUCINATION lactose [LACTOSE] Allergy (Unknown, Verified 09/04/23 16:19) DIARRHEA Medication List - Last Reconciled 09/04/23 by Trudi Duron MD albuterol sulfate 90 mcg/actuation 2 puffs inhalation Q4-6H PRN diazepam 2 mg PO .30 min before flying PRN ergocalciferol (vitamin D2) 1,250 mcg PO QWEEK 3 months fexofenadine 180 mg PO DAILY PRN fluticasone propion-salmeterol 230-21 mcg/actuation (Advair HFA) 2 puffs inhalation Q12H fluticasone propionate 220 mcg/actuation (Flovent HFA) 2 puffs inhalation BID 30 days ibuprofen 800 mg PO TID inhalational spacing device (InspiraChamber spacer) As directed ipratropium-albuterol 0.5 mg-3 mg(2.5 mg base)/3 mL 3 mL inhalation QID PRN levothyroxine 25 mcg PO DAILY lidocaine 5% 1 patch topical DAILY methocarbamol 750 mg PO BEDTIME PRN rosuvastatin 5 mg PO 3XW 3 months Tobacco use date assessed: 09/04/23 Dental Screening Dental Screen Date: 09/04/23 Did you have a dental visit in the last 12 months?: Yes Did you have a dental problem in the last 6 months where you did not have access to dental care?: No Was dental information given to patient?: Patient has dentist HPI Go over blood work [phone] HPI Details 53-year-old lady with Victorina's thyroi ditis with subsequent hypothyroidism, hyperlipidemia, and mild intermittent asthma as well as vitamin- D deficiency, here today for follow-up. Latest fasting labs showed lipids within normal limits, but vitamin-D still low at 17. HPI Comments History of Present Illness Details 53-year-old lady here today for follow-u p on her hypothyroidism, hyperlipidemia and vitamin-D deficiency. She has been doing well, no complaints at present time, compliant with taking her medications and following a healthy diet. Recent fasting labs showed lipids within normal limits , better than last check, thyroid levels are within normal limits as well but vitamin-D is low at 17 despite taking [id number] vitamin-D 3 supplements. A prescription already has been sent to her pharmacy for vitamin-D 3 high-dose to be taken once a week for the next 3 months. [facility] Medical History Premature ventricular beat Low back pain radiating to right lower extremity Victorina's thyroiditis Flying phobia Mild intermittent asthma Environmental and seasonal allergies Dyslipidemia Surgical History No pertinent past surgical history Family History Mother HTN (hypertension) Breast cancer Brother Renal failure Sister Rheumatoid arthritis Substance abuse Mental health disorder Substance use disorder Father Unknown family medical history Social History Housing: House Alcohol intake: never Patient Tobacco Use Status: Never used Tobacco e-Cigarette/Vaping Use: Never Used service: No Current occupational status: employed Cognitive needs: No Hearing needs: No Vision needs: Yes Questionnaire PHQ-9 Over the last 2 weeks, how often have you been bothered by any of the following problems? 1. Little interest or pleasure in doing things: not at all 2. Feeling down, depressed, or hopeless: not at all 3. Trouble falling or staying asleep, or sleeping too much: not at all 4. Feeling tired or having little energy: not at all 5. Poor appetite or overeating: not at all 6. Feeling bad about yourself - or that you are a failure or have let yourself or your family down: not at all 7. Trouble concentrating on things, such as reading the newspaper or watching television: not at all 8. Moving or speaking so slowly that other people could have noticed. Or the opposite - being so fidgety or restless that you have been moving around a lot more than usual: not at all 9. Thoughts that you would be better off or of hurting yourself in some way: not at all Total score: 0 Depression Screening Interpretation: Negative Depression Screening Done: Yes 38061 - PHQ-9 Billing: Yes Source: Developed by Drs. Bala L. Leni Torres Kurt Kroenke and colleagues, with an educational florecita from [employer]. Thrive Questionnaire Date Thrive assessed: 09/04/23 I am a: Patient What is your living situation today?: I have a steady place to live Within the past 12 months, did the food you bought not last and you didn't have the money to get more?: Never true Within the past 12 months, did you worry whether your food would run out before you got money to buy more?: Never true Do you have trouble paying for medicines?: No Do you have trouble getting transportation to medical appointments?: No Do you have trouble paying your heating and electricity bill?: No Do you have trouble taking care of your child, family member or friend?: No Do you have trouble with day-to-day activities such as bathing, preparing meals, shopping, managing finances, etc.?: No Are you currently unemployed and looking for a job?: No Are you interested in more education?: No THRIVE Score: 0 AUDIT C Alcohol Use Questionnaire (AUDIT-C) 1. How often do you have a drink containing alcohol?: Never Total Score: 0 CARLOS-7 AMB Questionnaire CARLOS-7 Date CARLOS - 7 assessed: 09/04/23 Feeling nervous, anxious, or on edge: 0 = Not at all Not being able to stop or control worryin = Not at all Worrying too much about different things: 0 = Not at all Trouble relaxin = Not at all Being so restless that it is hard to sit still: 0 = Not at all Becoming easily annoyed or irritable: 0 = Not at all Feeling afraid as if something awful might happen: 0 = Not at all Total CARLOS-7 score (0-4 normal; 5-9 mild; 10-14 moderate; 15-21 severe): 0 Source: Developed by Leni Corbett Kurt Kroenke and colleagues, with an educational florecita from [employer]. CARLOS-7 Assessment Billing CARLOS-7 Assessment Tool: CARLOS-7 Assessment 68230 Review of Systems Const Denies body aches, Denies fatigue, Denies headache(s) and Denies weakness Eyes Denies change in vision ENT Denies dizziness, Denies headache(s) and Denies nasal congestion Card Denies chest pain, Denies chest pain with activity, Denies syncope, Denies pedal edema, Denies lightheadedness, Denies palpitations, Denies dyspnea and Denies dyspnea on exertion Resp Denies cough, Denies dyspnea, Denies dyspnea on exertion and Denies wheezing GI Reports no additional complaints Reports no additional complaints Musc Denies abnormal gait, Denies muscle cramps, Denies muscle weakness, Denies numbness, Denies radiating pain into limb and Denies tingling Neuro Denies abnormal gait, Denies dizziness, Denies syncope, Denies headache(s), Denies numbness, Denies Sensory deficit (Neuro), Denies tingling and Denies weakness Psych Reports no additional complaints Endo Denies fatigue and Denies palpitations Randy/Lymph Reports no additional complaints Aller/Immun Denies wheezing Physical exam (Primary Care) Tobacco/Smoking Status: Tobacco use Status Tobacco use date assessed 09/04/23 09/04/23 15:58 Patient Tobacco Use Status Never used Tobacco 09/04/23 15:58 e-Cigarette/Vaping Use Never Used 09/04/23 15:58 PHQ-9: PHQ-9 Score PHQ-9: Total score 0 09/04/23 15:58 Depression Screening Interpretation: Negative Thrive Assessment: Date of Thrive Assessment Date Thrive assessed 09/04/23 09/04/23 15:58 Neuro Sensory Exam: No Sensory deficit (Neuro) Telehealth Telehealth Location of provider rendering services: practice address Location of patient: address on file Patient Identification confirmed using: Name, : Yes Telehealth method: video Patient verbally consented to treatment: Yes Patient verbally consented to billing insurance company: Yes Patient informed of any privacy concerns related to visit: Yes Minutes spent on Phone/Video with Pt.: 15 Results Reviewed Results Reviewed: Name: Kristin Teresa Age/Sex: 53/F : 1970 Unit#: [id number] Attend Dr: Trudi Duron MD Re08/05/23 Status: DEP REF Location: .LAB Disch: SPEC : [id number] HENRY: 08/05/23 STATUS: COMP REQ : [id number] RECD: 08/05/[address]: Trudi Duron MD COMP: 08/05/23 ENTERED: 08/05/[address] [facility] [address]: ORDERED: AST, ALT, Lipid Panel, Vitamin D 25-OH, Free T4, TSH Test Result Flag Reference AST (GOT) 15 5-31 U/L ALT (GPT) 14 0-31 U/L Triglyceride 53 <150 mg/dL Desirable Triglyceride: less than 150 mg/dL Borderline High Triglyceride 150-199 mg/dL High Triglyceride: 200-499 mg/dL Very High Triglyceride: greater than or equal to 5OO mg/dL Cholesterol 197 <200 mg/dL Desirable Cholesterol: less than 200 mg/dL Borderline High Cholesterol: 200-239 mg/dL High Cholesterol: greater than 239 mg/dL LDL Calculated 104 H <100 mg/dL Desirable LDL: less than 100 mg/dL Near Optimal/Above Optimal LDL: 110-129 mg/dL Borderline High LDL: 130-159 mg/dL High LDL: 160-189 mg/dL Very High LDL: greater than or equal to 190 mg/dL HDL 83 >40 mg/dL Desirable HDL: greater than 40 mg/dL Note: This HDL assay may give artificially low results in patients with liver disease. Vit D 25-OH Tot 17.7 L >30 ng/mL Health Based Reference Values* < 20 ng/mL Deficient 20-30 ng/mL Insufficient > 30 ng/mL Sufficient *Jesika STERN. N Engl J Med. 2007;357:266-280 Care must be taken in interpreting Vitamin D results from different laboratories and methodologies. Published data demonstrated that results from patients undergoing hemodialysis may show a negative bias when tested with various automated 25-OH vitamin D assays when compared to LC-MS/MS. When testing samples from patients whose predominant form of Vitamin D is Vitamin D2, such as patients receiving Vitamin D2 supplementation, results that are subtherapeutic should be confirmed with another method such as LC-MS/MS. Free T4 0.84 0.71-1.85 ng/dL TSH 3rd Gen. 3.17 0.32-4.0 uIU/mL Note: A sustained TSH level above 2.5 uIU/mL may warrant further investigation. TSH 3rd Generation ([facility]) Assessment and Plan Assessment & Plan (1) Victorina's thyroiditis: Code(s): E06.3 - Autoimmune thyroiditis Plan: Thyroid levels are within normal limits, continue on levothyroxine 25 mcg daily in a.m. an hour before breakfast. (2) Dyslipidemia: Code(s): E78.5 - Hyperlipidemia, unspecified Plan: Reviewed recent fasting lipid profile with patient with levels within normal limits . Continue with rosuvastatin 5 mg taken 1 tablet 3 times a week , in addition to adherence to low-cholesterol diet and regular exercise, at least 30 minutes 3 to 4 times a week. Advised patient to make healthy food choices, eat more fruits, vegetables, whole grains, wild caught fish and low-fat dairy. Limit amount of meat and fried or fatty food products, as well as processed foods and fast foods. (3) Vitamin D deficiency: Code(s): E55.9 - Vitamin D deficiency, unspecified Plan: Discussed results of recent vitamin-D level with patient, prescription sent already [place] 3 [place] [address] units per capsule to take once a week for the next 3 months. Medications: Refilled ergocalciferol (vitamin D2) x 3 months 1,250 mcg PO QWEEK 3 months 13 caps 0RF Coding Level of Care Code Tele Est Pt Level 3 (63632) Diagnoses Victorina's thyroiditis E06.3 Dyslipidemia E78.5 Vitamin D deficiency E55.9 Additional Codes CARLOS-7 Assessment Billing - CARLOS-7 Assessment Tool: CARLOS-7 Assessment 05960 ([id number])
== END ==
PROVIDERS: PCP Internal Medicine; Visit Provider Internal Medicine
DX: E06.3 Autoimmune thyroiditis (principal); E78.5 Hyperlipidemia, unspecified; E55.9 Vitamin D deficiency, unspecified
CPT/HCPCS: 99213

== ENCOUNTER → 2023-09-19 15:39 | Outpatient (BNVA) | payer OTHER, SELFPAY | PROVIDERS: PCP Internal Medicine; Visit Provider Physician Assistant Medical | DX: S39.012D Strain of muscle, fascia and tendon of lower back, subsequent encounter (principal); W18.30XD Fall on same level, unspecified, subsequent encounter | CPT/HCPCS: 99213 ==

== ENCOUNTER → 2023-09-26 13:29 | Outpatient (BNVA) | payer OTHER, SELFPAY | PROVIDERS: PCP Internal Medicine; Visit Provider Physician Assistant Medical | DX: S60.221A Contusion of right hand, initial encounter (principal); W20.8XXA Other cause of strike by thrown, projected or falling object, initial encounter | CPT/HCPCS: 29125; 73110; 73130; 99202 ==

== ENCOUNTER → 2023-10-03 10:15 | Outpatient (BNVA) | payer OTHER, SELFPAY | PROVIDERS: PCP Internal Medicine; Visit Provider Physician Assistant Medical | DX: S60.221A Contusion of right hand, initial encounter (principal); W20.8XXA Other cause of strike by thrown, projected or falling object, initial encounter | CPT/HCPCS: 99213 ==

== ENCOUNTER → 2023-10-19 15:34 | Outpatient (BNVA) | payer OTHER, SELFPAY | PROVIDERS: PCP Internal Medicine; Visit Provider Physician Assistant Medical | DX: S60.221D Contusion of right hand, subsequent encounter (principal); W20.8XXD Other cause of strike by thrown, projected or falling object, subsequent encounter | CPT/HCPCS: 99213 ==

== ENCOUNTER → 2023-10-31 11:06 | Outpatient (BNVA) | payer OTHER, SELFPAY | PROVIDERS: PCP Internal Medicine; Visit Provider Physician Assistant Medical | DX: S60.221D Contusion of right hand, subsequent encounter (principal); W20.8XXD Other cause of strike by thrown, projected or falling object, subsequent encounter | CPT/HCPCS: 99213 ==

== ENCOUNTER → 2023-11-16 15:21 | Outpatient (BNVA) | payer OTHER, SELFPAY | PROVIDERS: PCP Internal Medicine; Visit Provider Physician Assistant Medical | DX: S60.211D Contusion of right wrist, subsequent encounter (principal); W20.8XXD Other cause of strike by thrown, projected or falling object, subsequent encounter; M77.8 Other enthesopathies, not elsewhere classified | CPT/HCPCS: 99213 ==

== ENCOUNTER 2023-12-05 15:00 | Outpatient (RCR) | payer OTHER, SELFPAY ==
--- NOTE | 2023-10-12 16:24 | MHC.OT.EP ---
[address] [phone] Occupational Therapy Plan of Care Patient Name: Kristin Teresa Date of Evaluation: 10/12/23 Diagnosis: Right hand contusion Pain Location: Right thumb, 1st DI. ache Pain Score: 2 Pain Scale Used: Numeric (0 - 10) Aggravating Factors: Contact Manager and pinch Alleviating Factors: Assessment: Kristin is a 53 yo right dominant female 16 days s/p right hand contusion when a shade valance fell on her hand at work. XR shows a normal right hand and she has been wearing a pre jony wrist orthosis from the [facility] and referred to OT due to continued pain and swelling. 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 She reports mild difficulty with daily activities due to right hand pain and protection with a Quick DASH score of 31 pts Kristin will benefit from a custom hand based thumb spica for protection as needed and OT to decrease pain and improve right hand activity tolerance Frequency and Duration: The patient will be seen 2 x wk x 4 wks Short Term Goals: Report improved pain with use of custom hand splint Dec hand edema Independent with ROM for prevent joint stiffness Independent with isometric strengthening to prevent hand weakness Report increased tolerance with daily activities Fpc Goals: Pain free right hand with daily activities with modifications as needed Report improved tolerance with playing the guitar and and violin Right tax accounting manager > 65 lb Quick DASH <15 pts Treatment Plan: Therapeutic Exercise Therapeutic Activity Home Exercise Program Splinting Patient Education Edema Control ADL Training Ultrasound Fluidotherapy Soft Tissue Mobilization Kinesiotaping Electronically Signed By: Idalmis Alegre OT CHT CLT Please Sign and return to therapist. Thank you once again for your referral.
== END 2023-12-05 16:45 | disposition home or self-care (01) ==
LOC: HO.OT 15:00
PROVIDERS: PCP Internal Medicine; Visit Provider Physician Assistant Medical
DX: S60.221D Contusion of right hand, subsequent encounter (principal)
CPT/HCPCS: 29125; 29130; 97033; 97110; 97140; 97166; 97760

== ENCOUNTER → 2023-12-21 15:27 | Outpatient (BNVA) | payer OTHER, SELFPAY | PROVIDERS: PCP Internal Medicine; Visit Provider Physician Assistant Medical | DX: S39.012D Strain of muscle, fascia and tendon of lower back, subsequent encounter (principal); W18.30XD Fall on same level, unspecified, subsequent encounter; M51.17 Intervertebral disc disorders with radiculopathy, lumbosacral region | CPT/HCPCS: 99213 ==

== ENCOUNTER → 2024-02-15 15:38 | Outpatient (BNVA) | payer OTHER, SELFPAY | PROVIDERS: PCP Internal Medicine; Visit Provider Physician Assistant Medical | DX: S39.012D Strain of muscle, fascia and tendon of lower back, subsequent encounter (principal); W18.30XD Fall on same level, unspecified, subsequent encounter; M54.17 Radiculopathy, lumbosacral region | CPT/HCPCS: 99213 ==

== ENCOUNTER 2024-03-16 08:46 | Outpatient (REF) | payer BC, SELFPAY ==
--- NOTE | ~2024-03-16 | MM_ITS ---
EXAMINATION: MM SCREENING DIGITAL BREAST TOMOSYNTHESIS, BILATERAL CLINICAL INFORMATION: Screening. Asymptomatic. COMPARISON: Mammography: Comparison is made with available priors TECHNIQUE: Digital breast mammography with tomosynthesis is performed in both the craniocaudal and mediolateral oblique views along with computer-aided detection (CAD). FINDINGS: The breasts are heterogeneously dense, which may obscure small masses (ACR BI-RADS breast composition Category c). There are no significant masses, abnormal calcifications, or other abnormalities. MM/MM tomosynthesis screening BI IMPRESSION: No mammographic evidence of malignancy. ASSESSMENT: BI-RADS BI-RADS 1 - Negative RECOMMENDATION: Routine annual mammography screening. 1 year F/U This examination should not preclude the clinical evaluation of a suspicious palpable abnormality. This patient's information was entered into a reminder system with a target due date for their next mammogram. Electronically signed by: Alta Ren DO 04/01/2024 06:17 AM EDT
== END 2024-03-16 08:47 | disposition home or self-care (01) ==
LOC: HO.MAMMO 08:46
PROVIDERS: Visit Provider Obstetrics & Gynecology
DX: Z12.31 Encounter for screening mammogram for malignant neoplasm of breast (principal)
CPT/HCPCS: 77063; 77067

== ENCOUNTER → 2024-03-16 09:00 | Outpatient (BNV) | payer BC, SELFPAY | PROVIDERS: Visit Provider Internal Medicine | DX: Z12.31 Encounter for screening mammogram for malignant neoplasm of breast (principal) | CPT/HCPCS: 77063; 77067 ==

== ENCOUNTER 2024-04-02 08:03 | Outpatient (AMB) | payer BC, SELFPAY ==
[2024-04-02 08:44] VITALS: BP 128/84; PULSE 62; TEMP 36.9; O2SAT 98; BMI 24.7
--- NOTE | 2024-04-02 08:44 | MHC.OFFWIV ---
Intake Vital Signs 04/02/24 08:44 Height 5 ft 4 in Weight 144 lb BMI 24.7 BP 128/84 Blood Pressure Location Rt brachial Position Sitting Pulse 62 Pulse Source Pulse Oximeter Temp 98.4 F Temp Source Oral Pulse Oximetry (%) 98 Oxygen Delivery Method Room Air Intake Visit Reasons: cough since February- Covid back in Feb Intake Note: pt c/o ongoing cough since Covid 02/15. Negative at home tests 03/26 and 03/27 Patient Tobacco Use Status: Never used Tobacco Allergies codeine [CODEINE] Allergy (Unknown, Verified 04/02/24 08:48) HALLUCINATION lactose [LACTOSE] Allergy (Unknown, Verified 04/02/24 08:48) DIARRHEA Do you need a note to return to daycare/school/sports/work: Yes HPI HPI Comments History of Present Illness Details Patient is a 54-year-old female with a past medical history of asthma complaining of a dry cough for 6 weeks. She states she had COVID in February and has had this cough ever since. She states she has been using her at home nebulizer, her at asthma maintenance medication and her rescue inhaler without relief. She states she feels occasionally short of breath, denies hearing any wheezing. She denies any fevers, head congestion, sinus pain or ear pain. 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 [facility] Medical History Premature ventricular beat Low back pain radiating to right lower extremity Victorina's thyroiditis Flying phobia Mild intermittent asthma Environmental and seasonal allergies Dyslipidemia Surgical History No pertinent past surgical history Family History Mother HTN (hypertension) Breast cancer Brother Renal failure Sister Rheumatoid arthritis Substance abuse Mental health disorder Substance use disorder Father Unknown family medical history Social History Housing: House Alcohol intake: never Patient Tobacco Use Status: Never used Tobacco e-Cigarette/Vaping Use: Never Used service: No Current occupational status: employed Cognitive needs: No Hearing needs: No Vision needs: Yes Review of Systems Const All systems reviewed & are unremarkable except as noted in HPI and below Physical Exam Vital Signs: Last Vital Signs Temp 98.4 F 04/02/24 08:44 Pulse 62 04/02/24 08:44 BP 128/84 04/02/24 08:44 Pulse Ox 98 04/02/24 08:44 Oxygen Delivery Method Room Air 04/02/24 08:44 BMI result Body Mass Index 24.7 Const General: cooperative, healthy appearing, comfortable and no acute distress Orientation/consciousness: patient oriented x3 Limitations: no limitations HEENT Head: Yes normal to inspection Ears: hearing grossly normal bilaterally, external ears normal and TM's normal bilaterally General nose exam: Normal external nose present, Normal nares present and No nasal discharge present Face and sinus: Yes normal facial exam and Yes sinuses nontender Mouth: Normal oral and palatal mucosa present and moist mucous membranes Throat: Yes tonsils normal, Yes uvula midline and Yes posterior oropharynx abnormal (Erythema) Eyes General: appearance normal, both eyes and all related structures Neck Neck: Yes normal visual inspection Resp Effort & Inspection: normal respiratory effort, able to speak in complete sentences, Actively coughing, no respiratory distress, not tachypneic, no tripod positioning and no use of accessory muscles Auscultation: clear to auscultation bilaterally Cardio Rate: regular rate Rhythm: regular rhythm Heart sounds: normal S1 and S2 Skin General skin exam: no rashes or lesions noted Neuro General: patient oriented x3 Extrem General: Yes normal to inspection and Yes no clubbing, cyanosis or edema Assessment & Plan Assessment & Plan (1) Atypical pneumonia: Code(s): J18.9 - Pneumonia, unspecified organism Plan: Vital signs are stable, patient is well-appearing, lung sounds are clear. Likely atypical pneumonia after COVID, sent Z-Víctor, recommended she take Lactaid with a Z-Víctor as there is lactose as an ingredient. Recommended she stay out of work for today and tomorrow, we will write work note. Encouraged to continue to use nebulizer, Advair and her albuterol inhaler as needed. Plan See above Medications: New azithromycin For 250 mg dose pack: take 500 mg today (day 1), then 250 mg for 4 days (days 2-5) PO 6 tabs 0RF Coding Level of Care Code New Pt Level 3 (25659) Diagnoses Atypical pneumonia J18.9
== END 2024-04-02 11:34 | disposition home or self-care (01) ==
PROVIDERS: Visit Provider Physician Assistant
DX: J18.9 Pneumonia, unspecified organism (principal)

== ENCOUNTER 2024-04-02 08:03 | Outpatient (REF) | payer BC, SELFPAY ==
[2024-04-02 11:41] LABS: Influenza A PCR NEGATIVE (Negative); Influenza B PCR NEGATIVE (Negative); Resp Syncy Virus RNA Qual PCR NEGATIVE (Negative); SARS COV2 PCR INHOUSE NEGATIVE (Negative)
== END 2024-04-02 08:04 | disposition home or self-care (01) ==
LOC: HO.LAB 08:03
PROVIDERS: Visit Provider Physician Assistant
DX: J06.9 Acute upper respiratory infection, unspecified (principal)
CPT/HCPCS: 0241U

== ENCOUNTER 2024-04-26 09:53 | Outpatient (AMB) | payer BC, SELFPAY ==
[2024-04-26 09:55] VITALS: BP 102/62; PULSE 66; O2SAT 100; BMI 25.0
--- NOTE | 2024-04-26 09:55 | MHC.OFFVIS ---
Vital Signs 04/26/24 09:55 Height 5 ft 4 in Weight 145 lb 8.081 oz BMI 25.0 BP 102/62 Blood Pressure Location Rt brachial Position Sitting Pulse 66 Pulse Source Doppler Pulse Oximetry (%) 100 Oxygen Delivery Method Room Air Intake Visit Reasons: Asthma Allergies codeine [CODEINE] Allergy (Unknown, Verified 04/26/24 09:55) HALLUCINATION lactose [LACTOSE] Allergy (Unknown, Verified 04/26/24 09:55) DIARRHEA HPI HPI Asthma: Details: 52-year-old lady, lifetime nonsmoker, followed for mild to moderate persistent asthma and environmental allergies.? Patient has been using Advair 230, duo nebs, and albuterol MDI with good control of her underlying symptoms. She did COVID-19 approximately 2 months prior with prolonged recovery phase necessitating a course of azithromycin for possible secondary superinfection, but now has recovered to baseline. [facility] Medical History Premature ventricular beat Low back pain radiating to right lower extremity Victorina's thyroiditis Flying phobia Mild intermittent asthma Environmental and seasonal allergies Dyslipidemia Surgical History No pertinent past surgical history Family History Mother HTN (hypertension) Breast cancer Brother Renal failure Sister Rheumatoid arthritis Substance abuse Mental health disorder Substance use disorder Father Unknown family medical history Social History Housing: House Alcohol intake: never Patient Tobacco Use Status: Never used Tobacco e-Cigarette/Vaping Use: Never Used service: No Current occupational status: employed Cognitive needs: No Hearing needs: No Vision needs: Yes Review of Systems Const Denies daytime sleepiness, Denies excessive sweating, Denies fatigue, Denies fever(s), Denies lethargy, Denies malaise, Denies night sweats, Denies snoring and Denies weight loss Eyes Denies blurry vision and Denies itchy eyes ENT Denies nasal congestion, Denies post nasal drip, Denies sinus pain, Denies sinus pressure and Denies other ( Thrush) Card Denies chest pain, Denies pedal edema, Denies dyspnea, Denies orthopnea and Denies paroxysmal nocturnal dyspnea Resp Denies cough, Denies hemoptysis, Denies excessive phlegm production, Denies dyspnea, Denies snoring and Denies wheezing GI Denies abdominal pain and Denies heartburn Musc Denies myalgias, Denies arthralgias and Denies joint swelling Skin/Breast Denies rash Neuro Denies memory loss and Denies seizure-like activity Psych Denies abnormal sleep pattern, Denies anxiety and Denies memory loss Endo Denies excessive sweating, Denies fatigue and Denies heat intolerance Randy/Lymph Denies easy bruising Aller/Immun Denies itchy eyes, Denies seasonal rhinorrhea and Denies wheezing Physical Exam Vital Signs: Last Vital Signs Pulse 66 04/26/24 09:55 BP 102/62 04/26/24 09:55 Pulse Ox 100 04/26/24 09:55 Oxygen Delivery Method Room Air 04/26/24 09:55 BMI result Body Mass Index 25.0 Const General: no acute distress and alert Nutritional Appearance: not obese Orientation/consciousness: Other orientation findings ( oriented) HEENT Head: Yes atraumatic Eyes General: appearance normal, both eyes and all related structures Sclerae: sclerae normal EOM: EOMs intact bilaterally Neck Neck: Yes supple Lymphatic: no lymphadenopathy noted Resp Effort & Inspection: normal respiratory effort and no use of accessory muscles Auscultation: clear to auscultation bilaterally Cardio Rate: regular rate Rhythm: regular rhythm Heart sounds: no gallops, no murmurs and no rubs Skin General skin exam: other ( warm) Extrem General: No clubbing, No cyanosis and No edema Assessment & Plan Assessment & Plan (1) Asthma: Code(s): J45.909 - Unspecified asthma, uncomplicated Category: Medical Plan: Well controlled on current regimen of Advair, duo nebs, and albuterol MDI. Continue current regimen. Coding Level of Care Code Est Pt Level 3 (73523) Diagnoses Asthma J45.909
== END 2024-04-26 10:20 | disposition home or self-care (01) ==
PROVIDERS: PCP Internal Medicine; Visit Provider Internal Medicine Pulmonary Disease
DX: J45.909 Unspecified asthma, uncomplicated (principal)
CPT/HCPCS: 99213

== ENCOUNTER → 2024-04-26 09:53 | Outpatient (BNVA) | payer BC, SELFPAY | PROVIDERS: PCP Internal Medicine; Visit Provider Internal Medicine Pulmonary Disease | DX: J45.40 Moderate persistent asthma, uncomplicated (principal); Z23 Encounter for immunization | CPT/HCPCS: 90471; 90656; 90677 ==

== ENCOUNTER → 2024-06-03 14:59 | Outpatient (BNVA) | payer OTHER, SELFPAY | PROVIDERS: PCP Internal Medicine; Visit Provider Physician Assistant Medical | DX: S39.012D Strain of muscle, fascia and tendon of lower back, subsequent encounter (principal); W18.30XD Fall on same level, unspecified, subsequent encounter; M54.16 Radiculopathy, lumbar region | CPT/HCPCS: 99213 ==

== ENCOUNTER 2024-07-12 08:21 | Outpatient (AMB) | payer OTHER, SELFPAY ==
--- NOTE | 2024-07-12 08:25 | MHC.OFFVIS ---
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 This is a Worker's Comp case #[id number] DOI: 06/16/23. Patient works for [employer] and fell backwards on [employer] floor and injured her back a year ago with continued and persistent back pain resistant to physical therapy x13 sessions, continued home exercise program (gym 2x/week and hiking), NSAIDs, lidocaine patches, and heat therapy. Back pain is axial and also radiates to her left buttock and left lateral hip and into her anterior thigh but not below knee level. SLR testing is negative but she has significant exacerbation of pain with sacroiliac joint provocative testing on the left side. Pain increases with prolonged standing or sitting or twisting her spine. She completed lumbar spine MRI in December 2023 which showed L5-S1 left paracentral disc protrusion posteriorly displaces the traversing left S1 nerve root without significant central canal stenosis. Patient was deemed non-surgical candidate at that time per [facility] and was referred to our office for pain management options. Pain is rated at 2/10 during the day and increases at 7/10 by end of the day and during the night. Patient is frustrated it has been a year since injury and she still having back pain with exertion, especially being stationary or twisting her back. Pain affects her daily activities and functioning, mobility, sleep, work, and quality of life. She is hesitant towards interventional treatments, including injections under local anesthesia but is interested to pursue another course of PT to address left SI joint pain and left sided low back pain. Patient denies any fever or chills, abdominal or groin pain, weakness, numbness, tingling, burning, footdrop, bladder or bowel dysfunction, or saddle anesthesia. Oswestry low back pain disability score=11 (mild disability) Onset: 06/16/23 Location: Lower back radiates to left thigh Duration: Chronic pain x1 year Characteristics of symptom or complaint: Aching, dull, sore, hurting, heavy, tiring, spreading, radiating Aggravating or associated factors: Prolonged sitting or standing, exertion, twisting, getting up from sitting Relieving factors: Movement, walking, lidocaine, Ibuprofen, Tylenol, tried methocarbamol Treatment: PT x2, MRI, heat therapy, activity modifications [facility] Medical History Premature ventricular beat Low back pain radiating to right lower extremity Victorina's thyroiditis Flying phobia Mild intermittent asthma Environmental and seasonal allergies Dyslipidemia Surgical History No pertinent past surgical history Family History Mother HTN (hypertension) Breast cancer Brother Renal failure Sister Rheumatoid arthritis Substance abuse Mental health disorder Substance use disorder Father Unknown family medical history Social History Housing: House Alcohol intake: never Patient Tobacco Use Status: Never used Tobacco e-Cigarette/Vaping Use: Never Used service: No Current occupational status: employed Cognitive needs: No Hearing needs: No Vision needs: Yes Review of Systems Const All systems reviewed & are unremarkable except as noted in HPI and below Physical Exam Vital Signs: Last Vital Signs Pulse 85 07/12/24 08:31 BP 128/68 07/12/24 08:31 Pulse Ox 97 07/12/24 08:31 Oxygen Delivery Method Room Air 07/12/24 08:31 BMI result Body Mass Index 25.3 General: Appears afebrile. No acute distress. Alert and oriented. Mood and affect appropriate. Follows and participates in conversation appropriately. Respiratory effort is unlabored. No cough. Able to transition from sit to stand unassisted. Ambulates with bilaterally normal heel strike and toe off. General: Yes no CVA tenderness Back/Spine/Pelvis Other: Patient is able to walk and stand on heels and tip toes with no difficulties demonstrating good motor tone. Normal, non-antalgic gait, no limping. Can flex forward to 70-75 degrees and extend to 5-10 degrees before experiencing lumbar pain. Demonstrates 5/5 strength of quadriceps bilaterally as well as flexion/dorsiflexion of bilateral feet against resistance. 2+ pedal pulses bilaterally. Seated and supine straight leg rise with dorsiflexion negative bilaterally. +2 patellar and achilles reflexes bilaterally. Facet loading test positive bilaterally. Basilio sign, Lopez?s, Gaenslen, Pelvic compression and Stinchfield tests are positive on the left. No groin pain with I/E hip rotations. Valsalva maneuver negative. Back: no CVA tenderness Cervical Spine: cervical ROM normal, No Cervical spine scars present, No Cervical spine tenderness and No step off deformity Thoracic/Lumbar Spine: thoracic and lumbar spine normal to inspection, No Thoracic/lumbar spine scar(s), Lasegue's sign negative, straight leg raise negative bilaterally, pain with thoraco-lumbar ROM, No thoracic spinal tenderness and lumbar spinal tenderness (L4-S1) Pelvis: buttock tenderness on the left and no sciatic notch tenderness Sacroiliac joints: on the right nontender and on the left tender to palpation Extrem General: Yes capillary refill normal, Yes no clubbing, cyanosis or edema and Yes no calf tenderness Results Reviewed Results Reviewed: Lumbar spine MRI at [place] 12/11/23 Assessment & Plan Assessment & Plan (1) Lumbar disc herniation with radiculopathy: Code(s): M51.16 - Intervertebral disc disorders with radiculopathy, lumbar region Category: Medical (2) Chronic low back pain: Code(s): M54.50 - Low back pain, unspecified; G89.29 - Other chronic pain Category: Medical (3) Pain of left sacroiliac joint: Code(s): M53.3 - Sacrococcygeal disorders, not elsewhere classified Category: Medical (4) Muscle spasm of back: Code(s): M62.830 - Muscle spasm of back Category: Medical Plan Recommend physical therapy for chronic low back and left SIJ pain to reduce pain and optimize mobility, improve strength, proprioception, and neuromuscular coordination. Script provided. Script provided for methocarbamol and lidocaine patches. Side effects and precautions were discussed with patient. Continue daily physical activity and gentle stretching exercises, heat/ice therapy, NSAIDs and Tylenol p.r.n., adequate hydration, good posture, and activity modifications as needed. Discussed interventional treatments for axial low back pain and left SI joint pain including diagnostic versus therapeutic injections, neuromodulation and RFA treatment options. Informational pamphlets provided to patient. Patient is hesitant towards injections under local anesthesia but will consider therapeutic injections under light sedation if minimal response to another course of physical therapy. All questions and concerns have been answered and patient agreed with the treatment plan. Follow-up after PT and sooner as needed. Orders: Orders PT Evaluation and Treatment 07/12/24 G89.29 - Other chronic pain, M53.3 - Sacrococcygeal disorders, not elsewhere classified, M54.50 - Low back pain, unspecified, M62.830 - Muscle spasm of back Medications: New lidocaine 5% 1 patch topical DAILY 30 days 30 ea 1RF pain G89.29 - Other chronic pain, M51.16 - Intervertebral disc disorders with radiculopathy, lumbar region, M54.50 - Low back pain, unspecified methocarbamol 500 mg PO BEDTIME 30 days PRN 30 tabs 3RF muscle spasm G89.29 - Other chronic pain, M51.16 - Intervertebral disc disorders with radiculopathy, lumbar region, M54.50 - Low back pain, unspecified Coding Level of Care Code New Pt Level 4 (01480) Complex EM visit Add On G2211 Diagnoses Lumbar disc herniation with radiculopathy M51.16 Chronic low back pain M54.50; G89.29 Pain of left sacroiliac joint M53.3 Muscle spasm of back M62.830
[2024-07-12 08:31] VITALS: BP 128/68; PULSE 85; O2SAT 97; BMI 25.3
== END 2024-07-12 09:11 | disposition home or self-care (01) ==
PROVIDERS: PCP Internal Medicine; Referring Provider Physician Assistant Medical; Visit Provider Nurse Practitioner Family
DX: M51.16 Intervertebral disc disorders with radiculopathy, lumbar region (principal); M54.50 Low back pain, unspecified; G89.29 Other chronic pain; M53.3 Sacrococcygeal disorders, not elsewhere classified; M62.830 Muscle spasm of back
CPT/HCPCS: 99204; G2211

== ENCOUNTER → 2024-07-12 08:21 | Outpatient (BNVA) | payer OTHER, SELFPAY | PROVIDERS: PCP Internal Medicine; Referring Provider Physician Assistant Medical; Visit Provider Nurse Practitioner Family | DX: M51.16 Intervertebral disc disorders with radiculopathy, lumbar region (principal); G89.29 Other chronic pain; M54.50 Low back pain, unspecified; M53.3 Sacrococcygeal disorders, not elsewhere classified; M62.830 Muscle spasm of back | CPT/HCPCS: 99202 ==

== ENCOUNTER → 2024-07-15 15:34 | Outpatient (BNVA) | payer OTHER, SELFPAY | PROVIDERS: PCP Internal Medicine; Visit Provider Physician Assistant Medical | DX: M51.17 Intervertebral disc disorders with radiculopathy, lumbosacral region (principal); M46.1 Sacroiliitis, not elsewhere classified; Z02.79 Encounter for issue of other medical certificate | CPT/HCPCS: 99213 ==

== ENCOUNTER 2024-08-29 15:26 | Outpatient (REF) | payer BC, SELFPAY ==
--- OUTSIDE RECORDS SUMMARY | 2024-08-29 16:48 | XMS_ITS | Data Portability ---
Author Organization [facility], [facility] Address [address] [place] [address] Care Team Providers Care Tire Rebuilder Name Role Phone FREYA BROWN Oleo Hasher And Renderer Assessment No assessment recorded. Plan of Treatment Reminders Order Date Submit Date Provider Last Modified By Organization Details Last Modified Time Details Appointments None record ed. Lab None record ed. Referral None record ed. Procedures None record ed. Surgeries None record ed. Imaging None record ed. Medication Orders None record ed. Patient TargetsNo targets recorded. Patient InstructionsNo instructions recorded. Reason for Referral None Reported. Medical Equipment None Reported. Allergies Allergen ID Allergen Name Allergen Category Reaction Reaction Severity Criticality Documentation Date Start Date Code Code System Note Provider Name and Address Organization Details Recorded Time [id number] lactose food,medi cation Not available Not available Not available 12/13/2023 6211 RxNorm FATIMAH rawls [facility] 4 10:04:05 530398 codeine medicatio n Not available Not available Not available 12/13/2023 2670 RxNorm FATIMAH rawls [facility] 4 10:04:11 Medications Name Sig Start Date Stop Date Status Note LastModified by Organization Details LastModified Time ipratropium 0.5 mg-albuterol 3 mg (2.5 mg base)/3 mL nebulization soln INHALE 1 VIAL VIA NEBULIZER 4 TIMES A DAY NEEDED FOR WHEEZING active Not Available Not Available No t Available azithromycin 250 mg tablet TAKE 2 TABLETS BY MOUTH TODAY, THEN TAKE 1 TABLET DAILY FOR 4 DAYS DIRECTED active Not Available Not Available No t Available ibuprofen 800 mg tablet TAKE 1 TABLET BY MOUTH 3 TIMES A DAY NEEDED FOR PAIN/SWELL ING active Not Available Not Available No t Available fexofenadine 180 mg tablet TAKE 1 TABLET BY MOUTH EVERY DAY NEEDED FOR ALLERGIES active Not Available Not Available No t Available levothyroxine 25 mcg tablet TAKE 1 TABLET BY MOUTH EVERY DAY active Not Available Not Available No t Available methocarbamol 750 mg tablet TAKE 1 TABLET BY MOUTH AT BEDTIME NEEDED FOR MUSCLE SPASM active Not Available Not Available No t Available diazepam 2 mg tablet TAKE 1 TABLET BY MOUTH 30 MINUTES BEFORE FLYING NEEDED FOR ANXIETY active Not Available Not Available No t Available lidocaine 5 % topical patch APPLY 1 PATCH TOPICALLY TO MOST PAINFUL AREA ONCE DAILY. LEAVE ON FOR UP TO 12 HOURS active Not Available Not Available No t Available ergocalcifero l (vitamin D2) 1,250 mcg (50,000 unit) capsule TAKE 1 CAPSULE BY MOUTH EV WEEK FOR 3 MONTHS active Not Available Not Available No t Available albuterol sulfate HFA 90 mcg/actuation aerosol inhaler INHALE 2 PUFFS EVERY 4 TO 6 HOURS NEEDED FOR SHORTNESS OF BREATH OR FOR WHEEZE active Not Available Not Available No t Available rosuvastatin 5 mg tablet TAKE 1 TABLET BY MOUTH 3 TIMES PER WEEK active Not Available Not Available No t Available Flovent HFA 220 mcg/actuation aerosol inhaler INHALE 2 PUFFS 2 TIMES A DAY FOR 30 DAYS active Not Available Not Available No t Available fluticasone propionate 230 mcg-salmetero l 21 mcg/actuation HFA inhaler INHALE 2 PUFFS EVERY 12 HOURS active Not Available Not Available No t Available Vitals Date Recorded Body height Body mass index (BMI) Body weight Provider Name and Address Organization Details Last Updated DateTime 12/13/2023 162.56 cm 25.1 kg/m2 23081.49 g FATIMAH SIEGEL [place] [facility] 12/13/2023 10:03:55 Social History None recorded. Functional Status None recorded. Mental Status None recorded. Family History Nothing Reported. Medical History No medical history recorded. Gynecological HistoryNo gynecological history recorded. Obstetrics History GPAL:G 0 P 0 0 0 0 Past Encounters Encounter ID Performer Location Encounter Start Date Encounter Closed Date Diagnosis/Indication Diagnosis SNOMED-CT Code Diagnosis ICD10 Code Diagnosis Note [id number] MD Carolina Negron [address] [place] [address] 12/13/2023 09:24:26 12/26/2023 15:57:28 Contusion of right hand [id number] S60.221A Health Concerns Section Related Observation LastModified by Organization Detai ls LastModified Time None Recorded Concern Status LastModified by Organization Details LastModified Time None Recorded Advance Directives Directive None Recorded Payers Encounter Date Sequence Insurance Name Policy Number Policy Brambila Covered Member ID Brambila Member ID Guarantor Name 12/13/2023 [facility] Kristin Teresa Notes Date Note Type Note Provider Name and Address Organization Details Recorded Time 12/13/2023 text/html Diagnosis: Contusion right [id number] [employer]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 She was closing a shaver and middle phalanx fell landing on her hand. She noted the immediate onset of swelling and pain. Her workup has included plain x-rays and CT scan. The patient reports a 90% improvement in her pain.Past family, medical, social history and review of systems has been reviewed, updated and is located in the patient? s chart.Examination: Healthy appearing patient in no apparent distress. Alert and oriented. She has symmetric range of motion of her bilateral wrists and digits. Provocative testing recently does reveal no instability. No atrophy in either upper extremity. Brisk capillary refill in all digitsI reviewed her radiographs and her CT scan independently. I saw no evidence of fracture or dislocation. She does have some mild arthritic change.Plan: The patient and I discussed her situation at length. She appears to suffer a contusion to her right hand. She has improved dramatically and I expect her to continue to do so. I think he would be useful for her to start working on strengthening. She will follow up with me at her discretion. Alejandro Betancourt MD [address] [place], [place] [address]mike [address], [place], [address], [facility] - [facility] 12/13/2023 14:55:49 OBGyn Episode No OBEpisode recorded.
[2024-08-30 12:29] LABS: Influenza A PCR NEGATIVE (Negative); Influenza B PCR NEGATIVE (Negative); Resp Syncy Virus RNA Qual PCR NEGATIVE (Negative); SARS COV2 PCR INHOUSE NEGATIVE (Negative)
== END 2024-08-29 15:27 | disposition home or self-care (01) ==
LOC: HO.LAB 15:26
PROVIDERS: PCP Internal Medicine; Visit Provider Nurse Practitioner Family
DX: J06.9 Acute upper respiratory infection, unspecified (principal)
CPT/HCPCS: 0241U

== ENCOUNTER 2024-08-29 15:26 | Outpatient (AMB) | payer BC, SELFPAY ==
--- NOTE | 2024-08-29 15:49 | AM.OFFWIN_ITS ---
Intake Vital Signs 08/29/24 15:51 Weight 145 lb BP 126/80 Blood Pressure Location Lt brachial Position Sitting Pulse 70 Pulse Source Pulse Oximeter Temp 98.1 F Temp Source Oral Pulse Oximetry (%) 97 Oxygen Delivery Method Room Air Intake Visit Reasons: EP-?sinus infection Intake Note: Patient here for headache, congestion, yellow mucus that has been present for about 2 weeks. Patient Tobacco Use Status: Never used Tobacco Allergies codeine [CODEINE] Allergy (Unknown, Verified 08/29/24 15:52) HALLUCINATION lactose [LACTOSE] Allergy (Unknown, Verified 08/29/24 15:52) DIARRHEA Do you need a note to return to daycare/school/sports/work: No HPI HPI Comments History of Present Illness Details 54 y/o female patient who presents to [facility] walk in clinic with c/o URI symptoms for 2 weeks. She reports Headaches, sinus congestion, sinus pressure, and body chills. [facility] Medical History (Updated 08/29/24 @ 16:01 by Kaelyn Mtz NP) Acute respiratory disease Premature ventricular beat Low back pain radiating to right lower extremity Victorina's thyroiditis Flying phobia Mild intermittent asthma Environmental and seasonal allergies Dyslipidemia Surgical History No pertinent past surgical history Family History Mother HTN (hypertension) Breast cancer Brother Renal failure Sister Rheumatoid arthritis Substance abuse Mental health disorder Substance use disorder Father Unknown family medical history Social History Housing: House Alcohol intake: never Patient Tobacco Use Status: Never used Tobacco e-Cigarette/Vaping Use: Never Used service: No Current occupational status: employed Cognitive needs: No Hearing needs: No Vision needs: Yes Review of Systems Const All systems reviewed & are unremarkable except as noted in HPI and below Physical Exam Vital Signs: Last Vital Signs Temp 98.1 F 08/29/24 15:51 Pulse 70 08/29/24 15:51 BP 126/80 08/29/24 15:51 Pulse Ox 97 08/29/24 15:51 Oxygen Delivery Method Room Air 08/29/24 15:51 Const General: cooperative and no acute distress Orientation/consciousness: patient oriented x3 HEENT Head: Yes normocephalic Ears: external ears normal and TM abnormal bulging bilateral and with fluid behind the TM bilateral General nose exam: Abnormal mucous membranes and turbinates present erythematous bilateral Face and sinus: Yes sinus tenderness Mouth: moist mucous membranes Throat: Yes uvula midline Resp Effort & Inspection: normal respiratory effort and able to speak in complete sentences Auscultation: clear to auscultation bilaterally, no crackles, no rales, no rhonchi and no wheezes Cardio Heart sounds: S1 normal heart sound present and S2 normal heart sound present Neuro General: patient oriented x3 Assessment & Plan Assessment & Plan (1) Acute respiratory disease: Code(s): J06.9 - Acute upper respiratory infection, unspecified Plan: Ordered SARs OTC sinus/cold remedies Acetaminophen for pain relief. Orders: Orders SARS-CoV2/FLU/RSV Today J06.9 - Acute upper respiratory infection, unspecified Medications: Discontinued diazepam Discontinued Reason: Patient Completed Course 2 mg PO .30 min before flying PRN 10 tabs 0RF anxiety benzonatate Discontinued Reason: Patient Completed Course 200 mg PO TID PRN 90 caps 0RF cough azithromycin Discontinued Reason: Patient Completed Course For 250 mg dose pack: take 500 mg today (day 1), then 250 mg for 4 days (days 2-5) PO 6 tabs 0RF Coding Level of Care Code Est Pt Level 4 (92409) Diagnoses Acute respiratory disease J06.9 Time Spent (min) 20
[2024-08-29 15:51] VITALS: BP 126/80; PULSE 70; TEMP 36.7; O2SAT 97
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
== END 2024-08-29 16:23 | disposition home or self-care (01) ==
PROVIDERS: PCP Internal Medicine; Visit Provider Nurse Practitioner Family
DX: J06.9 Acute upper respiratory infection, unspecified (principal)

== ENCOUNTER 2024-11-28 08:54 | Outpatient (AMB) | payer BC, SELFPAY ==
--- OUTSIDE RECORDS SUMMARY | 2024-11-28 09:05 | XMS_ITS | Clinical Summary ---
Author Organization [facility] it Address [address] [place] [address] Care Team Providers Care Auto Top Mechanic Name Role Phone Unavailable Primary Care Provider [...] Vaccines (1 of 2) 2019 COVID-19 Vaccine ( - 2023-2 5 season) 2024 Influenza Vaccine (Season Ended) 2025 HIB Vaccines Aged Out No longer eligi [...] age to complete this topic Meningococcal B Vaccine Aged Out No l onger eligible based on patient's age to complete [...]
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
--- OUTSIDE RECORDS SUMMARY | 2024-11-28 09:05 | XMS_ITS ---
[facility] Address [address] [facility] [place] [address] Care Team Providers Care Oil And Gas Specialist Name Role Phone Domi DUNN, Trudi Snyder Primary Care Provider Un available Qamar Garcia Unavailable [phone] Allergies Allergen (clinical drug ingredient) Drug/Non Drug [...] 09/07/2023 Encounters Encounter Location Date Provider Diagnosis [facility] [place] [address] [place] [address] 09/07/2023 Qamar Garcia Peroneal tendinitis, left M76.72 [...] * Maggie REIDOB:1970 ( 53 yo F)Acc No.[id number]:09/07/2023 Progress Note Patient:?Kristin eRid Provider:?Qamar Garcia DPM :1970???Age:53 Y???Sex:Female D ate:09/07/2023 Address:[address] [place] [address], [facility] [id number] Pcp:Cristi Robles Subjective: * Chief Complaints: * [...] Travelling. ?Marital status: single. 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 * Medications:?TakingAlbuterol Fexofenadine HCl 180 MG Tablet [...] List reviewed and reconciled with the patientNot-Taking/PRN Shria Allergy 180 MG Tablet 1 tablet as [...] - M77.42? Plan: * Treatment: * Procedure Codes:?13966 X-RAY EXAM OF LEFT FOOT 3V, Modifiers: [...] painful condition.?Physical Therapy:?Discussed the potential short and termite control representative benefits of physical therapy including pain relief, [...] Garcia DPM Date:? 024 Generated for Chris nixon/Gavin/eTransmitting on:?11/28/2024 09:04 AM EDT History and Physical Notes * HPI (History [...]
--- NOTE | 2024-11-28 10:49 | AM.OFFWIN_ITS ---
Intake Vital Signs 3 11/28/24 10:56 Weight 149 lb BP 110/70 Blood Pressure Location Rt brachial Position Sitting Pulse 70 Pulse Source Pulse Oximeter Temp 98 F Temp Source Oral Pulse Oximetry (%) 100 Oxygen Delivery Method Room Air Intake Visit Reasons: EP-back of neck tick bite Intake Note: Patient here for tick bite that she was able to take out from back of neck. Patient Tobacco Use Status: Never used Tobacco Allergies codeine [CODEINE] Allergy (Unknown, Verified 11/28/24 10:58) HALLUCINATION lactose [LACTOSE] Allergy (Unknown, Verified 11/28/24 10:58) DIARRHEA Do you need a note to return to daycare/school/sports/work: Yes HPI HPI Comments 2 History of Present Illness0 Details 54 y/o Female patient who presents to [facility] walk in clinic with c/o tick bite on the occipital region. She noticed it yesterday and was able to remove The tick - intact. She does have a small Dog who spends time outdoors. Denies any systemic symptoms today. [facility] Medical History (Updated 11/28/24 @ 11:41 by Kaelyn Mtz NP) Tick bite Acute respiratory disease Premature ventricular beat Low back pain radiating to right lower extremity Victorina's thyroiditis Flying phobia Mild intermittent asthma Environmental and seasonal allergies Dyslipidemia Surgical History No pertinent past surgical history Family History Mother HTN (hypertension) Breast cancer Brother Renal failure Sister Rheumatoid arthritis Substance abuse Mental health disorder Substance use disorder Father Unknown family medical history Social History Housing: House Alcohol intake: never Patient Tobacco Use Status: Never used Tobacco e-Cigarette/Vaping Use: Never Used service: No Current occupational status: employed Cognitive needs: No Hearing needs: No Vision needs: Yes Review of Systems Const All systems reviewed & are unremarkable except as noted in HPI and below Physical Exam Vital Signs: Last Vital Signs Temp 98 F 11/28/24 10:56 Pulse 70 11/28/24 10:56 BP 110/70 11/28/24 10:56 Pulse Ox 100 11/28/24 10:56 Oxygen Delivery Method Room Air 11/28/24 10:56 Const General: no acute distress Orientation/consciousness: patient oriented x3 HEENT Other: Patient does have Darlene covering head. Head: Yes normocephalic and No scalp tenderness Head images: 2 1. No tick, no rash present. Neuro General: patient oriented x3, gait normal and moves all extremities Psych Speech and movement: Normal speech and movement present Assessment & Plan Assessment & Plan (1) Tick bite: Code(s): W57.XXXA - Bitten or stung by nonvenomous insect and other nonvenomous arthropods, initial encounter Qualifiers: Encounter type: initial encounter Site of tick bite: head Site of tick bite of head: scalp Qualified Code(s): S00.06XA - Insect bite (nonvenomous) of scalp, initial encounter; W57.XXXA - Bitten or stung by nonvenomous insect and other nonvenomous arthropods, initial encounter Plan: Pt presented a Tick in a Ziplock Bad - intact. No presence of Rash on Scalp No systemic symptoms. Will continue to monitor. Coding Level of Care Code Est Pt Level 4 (67370) Diagnoses Tick bite of scalp, initial encounter S00.06XA; W57.XXXA Encounter type: initial encounter Site of tick bite: head Site of tick bite of head: scalp Time Spent (min) 20
[2024-11-28 10:56] VITALS: BP 110/70; PULSE 70; TEMP 36.6; O2SAT 100
== END 2024-11-28 11:39 | disposition home or self-care (01) ==
PROVIDERS: PCP Internal Medicine; Visit Provider Nurse Practitioner Family
DX: S00.06XA Insect bite (nonvenomous) of scalp, initial encounter (principal); W57.XXXA Bitten or stung by nonvenomous insect and other nonvenomous arthropods, initial encounter

== ENCOUNTER → 2024-11-28 08:54 | Outpatient (BNVA) | payer BC, SELFPAY | PROVIDERS: PCP Internal Medicine; Visit Provider Nurse Practitioner Family ==

== ENCOUNTER 2024-12-23 14:09 | Outpatient (AMB) | payer BC, SELFPAY ==
[2024-12-23 14:17] VITALS: BP 110/84; PULSE 81; TEMP 36.8; O2SAT 100; BMI 25.4
--- NOTE | 2024-12-23 14:17 | MHC.OFFWIV ---
Intake Vital Signs 12/23/24 14:17 Height 5 ft 4 in Weight 148 lb 2 oz BMI 25.4 BP 110/84 Blood Pressure Location Lt brachial Position Sitting Pulse 81 Pulse Source Pulse Oximeter Temp 98.2 F Temp Source Oral Pulse Oximetry (%) 100 Oxygen Delivery Method Room Air Intake Visit Reasons: EP Tick bite Intake Note: Pt presents to the office today for c/o tick bite. 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 Patient Tobacco Use Status: Never used Tobacco Allergies codeine [CODEINE] Allergy (Unknown, Verified 12/23/24 14:20) HALLUCINATION lactose [LACTOSE] Allergy (Unknown, Verified 12/23/24 14:20) DIARRHEA HPI HPI Comments History of Present Illness Details 54 y/o Female patient who presents to the walk in clinic with c/o small bump at the area where she removed a tick (Occipital region). Pt had noticed a tick on 11/27 and was able to remove it - intact. At that time there was no rash or bumps at the site until a few days ago. 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 . [facility] Medical History (Updated 11/28/24 @ 11:41 by Kaelyn Mtz NP) Tick bite Acute respiratory disease Premature ventricular beat Low back pain radiating to right lower extremity Victorina's thyroiditis Flying phobia Mild intermittent asthma Environmental and seasonal allergies Dyslipidemia Surgical History No pertinent past surgical history Family History Mother HTN (hypertension) Breast cancer Brother Renal failure Sister Rheumatoid arthritis Substance abuse Mental health disorder Substance use disorder Father Unknown family medical history Social History Housing: House Alcohol intake: never Patient Tobacco Use Status: Never used Tobacco e-Cigarette/Vaping Use: Never Used service: No Current occupational status: employed Cognitive needs: No Hearing needs: No Vision needs: Yes Review of Systems Const All systems reviewed & are unremarkable except as noted in HPI and below Physical Exam Vital Signs: Last Vital Signs Temp 98.2 F 12/23/24 14:17 Pulse 81 12/23/24 14:17 BP 110/84 12/23/24 14:17 Pulse Ox 100 12/23/24 14:17 Oxygen Delivery Method Room Air 12/23/24 14:17 BMI result Body Mass Index 25.4 Const General: no acute distress Orientation/consciousness: patient oriented x3 HEENT Head: Yes normocephalic Head images: 1. A very small raised bump, normal in skin color, non TTP. NO Erythema Migrans rash present. Neck Neck: Yes full ROM, Yes no lymphadenopathy, Yes trachea midline and Yes no JVD Thyroid: nontender Neuro General: patient oriented x3, gait normal and moves all extremities Psych Speech and movement: Normal speech and movement present Assessment & Plan Assessment & Plan (1) Tick bite: Code(s): W57.XXXA - Bitten or stung by nonvenomous insect and other nonvenomous arthropods, initial encounter Qualifiers: Encounter type: initial encounter Site of tick bite: head Site of tick bite of head: scalp Qualified Code(s): S00.06XA - Insect bite (nonvenomous) of scalp, initial encounter; W57.XXXA - Bitten or stung by nonvenomous insect and other nonvenomous arthropods, initial encounter Plan: A very small raised bump, Occipital region, normal in skin color, non TTP. NO Erythema Migrans rash present. Will order Doxy as requested by patient. Medications: New doxycycline hyclate 200 mg (2 x 100 mg) PO ONCE 2 caps 0RF S00.06XA - Insect bite (nonvenomous) of scalp, initial encounter, W57.XXXA - Bitten or stung by nonvenomous insect and other nonvenomous arthropods, initial encounter Coding Level of Care Code Est Pt Level 4 (04830) Diagnoses Tick bite of scalp, initial encounter S00.06XA; W57.XXXA Encounter type: initial encounter Site of tick bite: head Site of tick bite of head: scalp Time Spent (min) 20
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
== END 2024-12-23 14:38 | disposition home or self-care (01) ==
PROVIDERS: PCP Internal Medicine; Visit Provider Nurse Practitioner Family
DX: S00.06XA Insect bite (nonvenomous) of scalp, initial encounter (principal); W57.XXXA Bitten or stung by nonvenomous insect and other nonvenomous arthropods, initial encounter

== ENCOUNTER → 2024-12-23 14:09 | Outpatient (BNVA) | payer BC, SELFPAY | PROVIDERS: PCP Internal Medicine; Visit Provider Nurse Practitioner Family | DX: Z13.89 Encounter for screening for other disorder (principal) ==

== ENCOUNTER 2025-01-22 13:39 | Outpatient (AMB) | payer BC, SELFPAY ==
[2025-01-22 13:41] VITALS: BP 100/70; PULSE 68; TEMP 36.8; O2SAT 98; BMI 26.1
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
--- OUTSIDE RECORDS SUMMARY | 2025-01-22 14:30 | XMS_ITS | Clinical Summary ---
Author Organization [facility] it Address [address] [place] [address] Care Team Providers Care Transplanter Name Role Phone Unavailable Primary Care Provider [...] - 2023-2 5 season) 2024 Influenza Vaccine (#1) 2025 HIB Vaccines Aged Out No longer [...] 5 Years) and At-Risk Patients (6 to 49 Years) Aged Out No longer eligible b ased on patient's age to complete this topic RSV Immunization Patients Un michelle 20 months Aged Out No longer eligible b ased on patient's age to complete this topic Varicella Vaccines Aged Out No longer eligible based on patient's age to complete this topic
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
== END 2025-01-22 14:30 | disposition home or self-care (01) ==
PROVIDERS: PCP Internal Medicine; Visit Provider Physician Assistant
DX: H69.93 Unspecified Eustachian tube disorder, bilateral (principal)

== ENCOUNTER 2025-03-07 08:46 | Outpatient (REF) | payer BC, SELFPAY ==
[2025-03-07 09:45] LABS: MANUAL DIFF FLAG NO
[2025-03-07 10:38] LABS: Hematocrit 38.1 % (37.0-47.0); Hemoglobin 12.3 g/dl (12.0-16.0); Imm Gran Abs Auto 0.01 X10*3/uL (0.00-0.03); Imm Gran Pct Auto 0.2 % (0.0-0.4); Lymphocytes Absolute Auto 1.3 X10*3/uL (1.2-4.9); Mean Corpuscular HGB Conc 32.3 g/dl (31.0-35.0); Mean Corpuscular Hemoglobin 26.6 pg (27.0-33.0); Mean Corpuscular Volume 82.5 fL (80.0-98.0); NRBC Abs Auto 0.000 X10*3/uL (0.0-0.012); NRBC Pct Auto 0.0 /100WBC (0.0-0.2); Platelet Count 211 X10*3/uL (160-400); Red Blood Count 4.62 X10*6/uL (4.20-5.50); White Blood Count 4.4 X10*3/uL (4.8-10.8)
[2025-03-12 04:58] LABS: Class Alternaria alternata 0; Class Aspergillus fumigatus 0; Class Bermuda Grass 0; Class Birch 0/1; Class Cat Dander 0; Class Cladosporium herbarum 0; Class Cockroach 0; Class Common Ragweed 0; Class Cottonwood 0; Class Derm. pterony 0; Class Dermatophagoides farinae 0; Class Dog Dander 0; Class Elm 0; Class Maple Box Elder 0; Class Mountain Cedar 0; Class Mouse Urine Protein 0; Class Mugwort 0; Class Oak 0; Class Penicillium crysogenum 0; Class Rough Pigweed 0; Class Sheep Sorrel 0; Class Sycamore 0; Class Timothy Grass 0; Class Walnut Tree 0; Class White Ash 0; Class White Mulberry 0; D002 - IgE D farinae <0.10 kU/L; E001 - IgE Cat Dander <0.10 kU/L; E005 - IgE Dog Dander <0.10 kU/L; G006 - IgE Timothy Grass <0.10 kU/L; I006-IgE Cockroach, German <0.10 kU/L; M002 - IgE Cladosporium herbar <0.10 kU/L; M003 - IgE Aspergillus fumigat <0.10 kU/L; M006 - IgE Alternaria alternat <0.10 kU/L; T001 IgE Maple/Box Elder <0.10 kU/L; T006 - IgE Cedar, Mountain <0.10 kU/L; T007 - IgE Oak, White <0.10 kU/L; T008 IgE Elm, American <0.10 kU/L; T010 - IgE Walnut <0.10 kU/L; T011 - IgE Maple Leaf Sycamore <0.10 kU/L; T014 - IgE Cottonwood <0.10 kU/L; T015 - IgE Ash, White <0.10 kU/L; T070 - IgE White Mulberry <0.10 kU/L; W001 - IgE Ragweed, Short <0.10 kU/L; W006 - IgE Mugwort <0.10 kU/L; W014 IgE Pigweed, Common <0.10 kU/L; W018 IgE Sheep Sorrel <0.10 kU/L
[2025-03-12 13:08] LABS: Immunoglobulin G Subclass 1 802 mg/dL (382-929); Immunoglobulin G Subclass 2 194 mg/dL (241-700); Immunoglobulin G Subclass 3 19 mg/dL (22-178); Immunoglobulin G Subclass 4 12.6 mg/dL (4-86); Immunoglobulin G Total 1313 mg/dL (600-1640)
== END 2025-03-07 08:47 | disposition home or self-care (01) ==
LOC: HO.LAB 08:46
PROVIDERS: PCP Internal Medicine; Visit Provider Internal Medicine Pulmonary Disease
DX: J45.909 Unspecified asthma, uncomplicated (principal); J41.1 Mucopurulent chronic bronchitis; Z79.51 Long term (current) use of inhaled steroids; Z01.84 Encounter for antibody response examination
CPT/HCPCS: 36415; 82784; 82785; 85025; 86003

== ENCOUNTER 2025-03-07 08:46 | Outpatient (AMB) | payer BC, SELFPAY ==
[2025-03-07 08:52] VITALS: BP 112/62; PULSE 92; O2SAT 98; BMI 25.4
--- NOTE | 2025-03-07 08:52 | MHC.OFFVIS ---
Vital Signs 03/07/25 08:52 Height 5 ft 4 in Weight 148 lb BMI 25.4 BP 112/62 Blood Pressure Location Rt brachial Position Sitting Pulse 92 Pulse Source Pulse Oximeter Pulse Oximetry (%) 98 Oxygen Delivery Method Room Air Intake Visit Reasons: Asthma Allergies codeine (CODEINE) Allergy (Unknown, Verified 01/22/25 13:48) HALLUCINATION lactose (LACTOSE) Allergy (Unknown, Verified 01/22/25 13:48) DIARRHEA HPI HPI Asthma: Details: 55-year-old lady, lifetime nonsmoker, followed for mild to moderate persistent asthma and environmental allergies.? Patient has been using Advair 230, duo nebs, and albuterol MDI with baseline good control of her underlying symptoms. Over the last several weeks patient developed an upper respiratory infection causing another exacerbation that she is still symptomatic from with some wheezing, cough, and sputum production. [facility], [facility] Medical History (Updated 03/07/25 @ 09:11 by Felipe Rae MD) Tick bite Acute respiratory disease Premature ventricular beat Low back pain radiating to right lower extremity Victorina's thyroiditis Flying phobia Mild intermittent asthma Environmental and seasonal allergies Dyslipidemia Surgical History No pertinent past surgical history Family History Mother HTN (hypertension) Breast cancer Brother Renal failure Sister Rheumatoid arthritis Substance abuse Mental health disorder Substance use disorder Father Unknown family medical history Social History Housing: House Alcohol intake: never Patient Tobacco Use Status: Never used Tobacco e-Cigarette/Vaping Use: Never Used service: No Current occupational status: employed Cognitive needs: No Hearing needs: No Vision needs: Yes Review of Systems Const Denies daytime sleepiness, Denies excessive sweating, Denies fatigue, Denies fever(s), Denies lethargy, Denies malaise, Denies night sweats, Denies snoring and Denies weight loss Eyes Denies blurry vision and Denies itchy eyes ENT Denies nasal congestion, Denies post nasal drip, Denies sinus pain, Denies sinus pressure and Denies other ( Thrush) Card Denies chest pain, Denies pedal edema, Denies dyspnea, Denies orthopnea and Denies paroxysmal nocturnal dyspnea Resp Reports cough, Denies hemoptysis, Reports excessive phlegm production, Denies dyspnea, Denies snoring and Reports wheezing GI Denies abdominal pain and Denies heartburn Musc Denies myalgias, Denies arthralgias and Denies joint swelling Skin/Breast Denies rash Neuro Denies memory loss and Denies seizure-like activity Psych Denies abnormal sleep pattern, Denies anxiety and Denies memory loss Endo Denies excessive sweating, Denies fatigue and Denies heat intolerance Randy/Lymph Denies easy bruising Aller/Immun Denies itchy eyes, Denies seasonal rhinorrhea and Reports wheezing Physical Exam Vital Signs: Last Vital Signs Pulse 92 03/07/25 08:52 BP 112/62 03/07/25 08:52 Pulse Ox 98 03/07/25 08:52 Oxygen Delivery Method Room Air 03/07/25 08:52 BMI result Body Mass Index 25.4 Const General: no acute distress and alert Nutritional Appearance: not obese Orientation/consciousness: Other orientation findings ( oriented) HEENT Head: Yes atraumatic Eyes General: appearance normal, both eyes and all related structures Sclerae: sclerae normal EOM: EOMs intact bilaterally Neck Neck: Yes supple Lymphatic: no lymphadenopathy noted Resp Effort & Inspection: normal respiratory effort and no use of accessory muscles Auscultation: rales (Bilateral diffuse) Cardio Rate: regular rate Rhythm: regular rhythm Heart sounds: no gallops, no murmurs and no rubs Skin General skin exam: other ( warm) Extrem General: No clubbing, No cyanosis and No edema Assessment & Plan Assessment & Plan (1) Asthma: Code(s): J45.909 - Unspecified asthma, uncomplicated Category: Medical Plan: Baseline controlled on Advair, albuterol MDI, and duo nebs. Continue current regimen. Will treat acute exacerbation with a course of prednisone. (2) Environmental and seasonal allergies: Code(s): J30.89 - Other allergic rhinitis Category: Medical Plan: Baseline controlled on as needed Shira. Continue current regimen. (3) Bronchitis, mucopurulent recurrent: Code(s): J41.1 - Mucopurulent chronic bronchitis Category: Medical Plan: Recurrent bronchitis, now with another exacerbation with productive cough. Will treat with a course of azithromycin. Will check immunoglobulin levels. Orders: Orders Immunoglobulin G Subclasses Today J45.909 - Unspecified asthma, uncomplicated Resp Allergy Profile Region I Today J45.909 - Unspecified asthma, uncomplicated Complete Blood Count Auto Diff Today J45.909 - Unspecified asthma, uncomplicated Immunoglobulins,IgG IgA IgM Today J45.909 - Unspecified asthma, uncomplicated Medications: New azithromycin For 250 mg dose pack: take 500 mg today (day 1), then 250 mg for 4 days (days 2-5) PO 6 tabs 0RF J45.909 - Unspecified asthma, uncomplicated prednisone 40 mg (2 x 20 mg) PO DAILY 10 tabs 0RF J45.909 - Unspecified asthma, uncomplicated Refilled ipratropium-albuterol 0.5 mg-3 mg(2.5 mg base)/3 mL 3 mL inhalation QID PRN 180 mL 3RF for wheezing J45.30 - Mild persistent asthma, uncomplicated fluticasone propion-salmeterol 230-21 mcg/actuation (Advair HFA) 2 puffs inhalation Q12H 1 ea 3RF J45.909 - Unspecified asthma, uncomplicated Coding Level of Care Code Est Pt Level 4 (84604) Complex EM visit Add On G2211 Diagnoses Asthma J45.909 Environmental and seasonal allergies J30.89 Bronchitis, mucopurulent recurrent J41.1
--- OUTSIDE RECORDS SUMMARY | 2025-03-07 09:40 | XMS_ITS | Clinical Summary ---
Author Organization [facility] ity Address [address] [place] [address] Care Team Providers Care Hse Advisor Name Role Phone Unavailable Primary Care Provider [...] 2019 COVID-19 Vaccine (2023-2 5 season) 2024 Depression Screening 07/10/2024 Influenza Vaccine (#1) 2025 HIB Vaccines Aged [...]
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
== END 2025-03-07 09:09 | disposition home or self-care (01) ==
LOC: HO.HPS 08:46
PROVIDERS: PCP Internal Medicine; Visit Provider Internal Medicine Pulmonary Disease
DX: J45.909 Unspecified asthma, uncomplicated (principal); J30.89 Other allergic rhinitis; J41.1 Mucopurulent chronic bronchitis
CPT/HCPCS: 99214

== ENCOUNTER 2025-03-22 09:44 | Outpatient (REF) | payer BC, SELFPAY ==
--- NOTE | ~2025-03-22 | MM_ITS ---
EXAMINATION: MM SCREENING DIGITAL BREAST TOMOSYNTHESIS, BILATERAL CLINICAL INFORMATION: Screening. Asymptomatic. COMPARISON: Mammography: Comparison is made with available priors TECHNIQUE: Digital breast mammography with tomosynthesis is performed in both the craniocaudal and mediolateral oblique views along with computer-aided detection (CAD). FINDINGS: The breasts are heterogeneously dense, which may obscure small masses (ACR BI-RADS breast composition Category c). There are no significant masses, abnormal calcifications, or other abnormalities. MM/MM tomosynthesis screening BI IMPRESSION: No mammographic evidence of malignancy. ASSESSMENT: BI-RADS BI-RADS 1 - Negative RECOMMENDATION: Routine annual mammography screening. 1 year F/U This examination should not preclude the clinical evaluation of a suspicious palpable abnormality. This patient's information was entered into a reminder system with a target due date for their next mammogram. Electronically signed by: Alta Ren DO 03/25/2025 04:31 PM EDT
--- OUTSIDE RECORDS SUMMARY | 2025-03-22 09:47 | XMS_ITS | Clinical Summary ---
Author Organization [facility] ity Address [address] [place] [address] Care Team Providers Care Vp Software Engineering Name Role Phone Unavailable Primary Care Provider [...]
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
== END 2025-03-22 09:45 | disposition home or self-care (01) ==
LOC: HO.MAMMO 09:44
PROVIDERS: PCP Internal Medicine; Visit Provider Internal Medicine
DX: Z12.31 Encounter for screening mammogram for malignant neoplasm of breast (principal)
CPT/HCPCS: 77063; 77067

== ENCOUNTER → 2025-03-22 10:00 | Outpatient (BNV) | payer BC, SELFPAY | PROVIDERS: PCP Internal Medicine; Visit Provider Internal Medicine | DX: Z12.31 Encounter for screening mammogram for malignant neoplasm of breast (principal) | CPT/HCPCS: 77063; 77067 ==

== ENCOUNTER 2025-03-31 07:08 | Outpatient (AMB) | payer BC, SELFPAY ==
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
--- OUTSIDE RECORDS SUMMARY | 2025-03-31 07:11 | XMS_ITS | Clinical Summary ---
Author Organization [facility] ity Address [address] [place] [address] Care Team Providers Care Manager Billing Name Role Phone Unavailable Primary Care Provider [...] 2019 Zoster Vaccines (1 of 2) 2019 Depression Screening 07/10/2024 COVID-19 Vaccine ( - 2023-2 5 season) 2025 Influenza Vaccine (#1) 2025 HIB Vaccines Aged [...]
[2025-03-31 07:14] VITALS: BP 120/70; PULSE 74; RESP 16; TEMP 36.8; O2SAT 100; BMI 26.3
--- NOTE | 2025-03-31 07:14 | AM.OFFWIN_ITS ---
Intake Vital Signs 03/31/25 07:14 Height 5 ft 4 in Weight 153 lb BMI 26.3 BP 120/70 Blood Pressure Location Lt brachial Position Sitting Respiration 16 Pulse 74 Pulse Source Pulse Oximeter Temp 98.2 F Temp Source Oral Pulse Oximetry (%) 100 Oxygen Delivery Method Room Air Intake Visit Reasons: ep cough sinus infection Intake Note: Pt is here today c/o cough and ?sinus infection Patient Tobacco Use Status: Never used Tobacco Allergies codeine (CODEINE) Allergy (Unknown, Verified 01/22/25 13:48) HALLUCINATION lactose (LACTOSE) Allergy (Unknown, Verified 01/22/25 13:48) DIARRHEA HPI HPI Comments History of Present Illness Details History - The patient is a 55-year-old female pr esenting with asthma exacerbation and recurrent respiratory infections. - She has a history of asthma exacerbati ons triggered by respiratory infections, often requiring prednisone. - Recent episodes have been treated with azithromycin and prednisone, though the effectiveness has been limited. - Persistent sinus congestion and non-pr oductive cough are current symptoms. - Genetic testing is underway to assess for antibiotic deficiency. - The patient uses a nebulizer and inhal er for asthma management and reports being lactose intolerant. - She has a persistent dry cough. - She also has been having sinus congest ion and post nasal drip. - She denies fever or chills. - She denies sick contacts, recent trave l, CP, abd pain, or n/v/d. Physical Exam General: Cooperative, healthy appearing, comfortable and no acute distress Orientation/consciousness: Patient oriented x3 Limitations: No limitations Head: Normal to inspection Ears: Hearing grossly normal bilaterally, external ears normal and TM's normal bilaterally Nose: Normal external nose present, normal nares present, and no nasal discharge present. Face and sinus: Sinuses nontender to palpation. Mouth: Normal oral and palatal mucosa present and moist mucous membranes noted. Throat: Tonsils normal. Uvula is midline. Posterior oropharynx with erythema and no exudates. Eyes: Appearance normal, both eyes and all related structures Neck: Normal visual inspection, full ROM. No lymphadenopathy noted. Respiratory: Clear to auscultation bilaterally. Normal respiratory effort, able to speak in complete sentences. No respiratory distress, not tachypneic, no tripod positioning and no use of accessory muscles. Cardiovascular: Regular rate and rhythm. Normal S1 and S2 Skin: No rashes or lesions noted Patient was informed and verbally consented to the use of an ambient scribe for clinic note documentation during this visit COUNTS INCLUDE [facility] BEDS AT [facility] Medical History (Updated 03/07/25 @ 09:11 by Felipe Rae MD) Tick bite Acute respiratory disease Premature ventricular beat Low back pain radiating to right lower extremity Victorina's thyroiditis Flying phobia Mild intermittent asthma Environmental and seasonal allergies Dyslipidemia Surgical History No pertinent past surgical history Family History Mother HTN (hypertension) Breast cancer Brother Renal failure Sister Rheumatoid arthritis Substance abuse Mental health disorder Substance use disorder Father Unknown family medical history Social History Housing: House Alcohol intake: never Patient Tobacco Use Status: Never used Tobacco e-Cigarette/Vaping Use: Never Used service: No Current occupational status: employed Cognitive needs: No Hearing needs: No Vision needs: Yes Review of Systems Const All systems reviewed & are unremarkable except as noted in HPI and below Physical Exam Vital Signs: Last Vital Signs Temp 98.2 F 03/31/25 07:14 Pulse 74 03/31/25 07:14 Resp 16 03/31/25 07:14 BP 120/70 03/31/25 07:14 Pulse Ox 100 03/31/25 07:14 Oxygen Delivery Method Room Air 03/31/25 07:14 BMI result Body Mass Index 26.3 Assessment & Plan Assessment & Plan (1) Cough: Code(s): R05.9 - Cough, unspecified Qualifiers: Cough type: acute Qualified Code(s): R05.1 - Acute cough Plan Most likely asthma exacerbation vs URI vs allergies vs sinusitis vs covid vs RSV vs viral illness plan - Continue current asthma management with nebulizer and inhaler use. - Initiate a respiratory panel to identify potential viral causes. - Order a chest x-ray to evaluate for any underlying pulmonary issues. - Switch antibiotic therapy from azithromycin to Augmentin. - Continue symptomatic treatment with Sudafed and Tylenol. - will give her a work note - follow up with PCP and pulm Orders: Orders Resp Pathogen Panel [place] [facility] Today J06.9 - Acute upper respiratory infection, unspecified XR chest 2V Today R05.9 - Cough, unspecified Medications: New prednisone 50 mg PO QAM 5 tabs 0RF amoxicillin-pot clavulanate 875-125 mg 1 tab PO Q12H 14 tabs 0RF Coding Level of Care Code Est Pt Level 3 (57554) Diagnoses Acute cough R05.1 Cough type: acute
== END 2025-03-31 08:01 | disposition home or self-care (01) ==
PROVIDERS: PCP Internal Medicine; Visit Provider Physician Assistant Medical
DX: R05.1 Acute cough (principal)

== ENCOUNTER 2025-03-31 07:08 | Outpatient (REF) | payer BC, SELFPAY ==
[2025-03-31 13:37] LABS: Chlamydia pneumoniae PCR Not Detected (Not Detect.); Coronavirus 229E PCR Not Detected (Not Detect.); Coronavirus HKU1 PCR Not Detected (Not Detect.); Coronavirus NL63 PCR Not Detected (Not Detect.); Coronavirus OC43 PCR Not Detected (Not Detect.); RSV PCR Not Detected (Not Detect.); Rhino/Enterovirus PCR Detected (Not Detect.)
[2025-03-31 13:45] LABS: Influenza A H1 PCR Not Detected (Not Detect.); Influenza A H1-2009 PCR Not Detected (Not Detect.); Influenza A H3 PCR Not Detected (Not Detect.); SARS-CoV-2 PCR Not Detected (Not Detect.)
== END 2025-03-31 07:09 | disposition home or self-care (01) ==
LOC: HO.LNP 07:08
PROVIDERS: PCP Internal Medicine; Visit Provider Physician Assistant Medical
DX: R05.1 Acute cough (principal); J45.20 Mild intermittent asthma, uncomplicated; R09.81 Nasal congestion; R09.82 Postnasal drip
CPT/HCPCS: 87633

== ENCOUNTER 2025-04-04 07:22 | Outpatient (REF) | payer BC, SELFPAY ==
--- OUTSIDE RECORDS SUMMARY | 2025-04-04 07:25 | XMS_ITS | Clinical Summary ---
Author Organization [facility] ity Address [address] [place] [address] Care Team Providers Care Ell Tutor Name Role Phone Unavailable Primary Care Provider [...]
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
[2025-04-04 11:23] LABS: Alanine Aminotransferase 26 U/L (0-31); Aspartate Amino Transferase 22 U/L (5-31); Cholesterol 223 mg/dL (<200); HDL Cholesterol 85 mg/dL (>40); Triglycerides 78 mg/dL (<150)
[2025-04-04 11:25] LABS: Free T4 (Free Thyroxine) 0.88 ng/dL (0.71-1.85); Thyroid Stimulating Hormone 6.24 uIU/mL (0.32-4.0)
== END 2025-04-04 07:23 | disposition home or self-care (01) ==
LOC: HO.HMGCLDS 07:22
PROVIDERS: PCP Internal Medicine; Visit Provider Internal Medicine
DX: Z01.84 Encounter for antibody response examination (principal); E06.3 Autoimmune thyroiditis; E55.9 Vitamin D deficiency, unspecified; E78.5 Hyperlipidemia, unspecified
CPT/HCPCS: 36415; 80061; 82306; 84439; 84443; 84450; 84460; 86376

== ENCOUNTER 2025-04-07 13:17 | Outpatient (AMB) | payer BC, SELFPAY ==
[2025-04-07 14:00] VITALS: BP 112/74; PULSE 78; O2SAT 97; BMI 26.3
--- NOTE | 2025-04-07 14:00 | A.OFFPC_ITS ---
Vital Signs 04/07/25 14:00 Height 5 ft 4 in Weight 153 lb BMI 26.3 BP 112/74 Blood Pressure Location Lt brachial Position Sitting Pulse 78 Pulse Source Pulse Oximeter Pulse Oximetry (%) 97 Intake Visit Reasons: Annual PE Allergies codeine (CODEINE) Allergy (Unknown, Verified 04/07/25 14:12) HALLUCINATION lactose (LACTOSE) Allergy (Unknown, Verified 04/07/25 14:12) DIARRHEA Medication List - Last Reconciled 04/07/25 by Trudi Duron MD albuterol sulfate 90 mcg/actuation 2 puffs inhalation Q4-6H PRN amoxicillin-pot clavulanate 875-125 mg 1 tab PO Q12H cholecalciferol (vitamin D3) 1,250 mcg PO QWEEK 3 months fexofenadine 180 mg PO DAILY PRN ibuprofen 600 mg PO TID PRN inhalational spacing device (InspiraChamber spacer) As directed ipratropium-albuterol 0.5 mg-3 mg(2.5 mg base)/3 mL 3 mL inhalation QID PRN levothyroxine 25 mcg PO DAILY lidocaine 5% 1 patch topical DAILY 30 days Tobacco use date assessed: 04/07/25 Dental Screening Dental Screen Date: 04/07/25 Did you have a dental visit in the last 12 months?: Yes Did you have a dental problem in the last 6 months where you did not have access to dental care?: No Was dental information given to patient?: Patient has dentist HPI Annual PE HPI Details 55-year-old female presenting here today for physical exam. She has a history mild intermittent asthma currently on DuoNeb by nebulizer, and uses albuterol inhaler as needed for episodes of bronchospasm. Recently diagnosed with acute sinusitis at the walk-in clinic of sinusitis, and was prescribed prednisone and Augmentin. She is on the last tablet of Augmentin and has completed a course of prednisone, feeling better , but still have his a lingering cough She has vitamin D deficiency, currently not on any supplement.. She has been prescribed high-dose vitamin D supplements for the winter and spring seasons. Victorina's thyroiditis is present, with elevated thyroid peroxidase antibodies, ordered TSH and low normal free T4 levels noted on recent blood work. Patient states that she feels well on current dose of levothyroxine 25 mcg daily The patient has a persistently low white blood cell count, which may contribute to frequent infections, although she is not anemic and her platelet count is normal. Hypercholesterolemia is noted, with mild elevation in LDL cholesterol. Patient has stopped taking her rosuvastatin several months ago, when she was on vacation. Never resumed taking it History of lumbar degenerative disease with disc protrusion, removed with physical therapy and application of lidocaine patches. Strengthening exercises for her core muscles have been beneficial. Up-to-date with her colon cancer screening, had a Cologuard test done last year which came back with negative findings, and is up-to-date with her breast cancer screening with mammogram done earlier this year showing negative findings. She currently is being [facility] by Dr. Moura , and has an appointment already scheduled for her cervical cancer screening in August 2025. [facility] Medical History (Updated 04/08/25 @ 00:05 by Trudi Duron MD) Tick bite Acute respiratory disease Premature ventricular beat Low back pain radiating to right lower extremity Victorina's thyroiditis Flying phobia Mild intermittent asthma Environmental and seasonal allergies Dyslipidemia Surgical History No pertinent past surgical history Family History Mother HTN (hypertension) Breast cancer Brother Renal failure Sister Rheumatoid arthritis Substance abuse Mental health disorder Substance use disorder Father Unknown family medical history Social History Housing: House Alcohol intake: never Patient Tobacco Use Status: Never used Tobacco e-Cigarette/Vaping Use: Never Used service: No Current occupational status: employed 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 1. Little interest or pleasure in doing things: not at all 2. Feeling down, depressed, or hopeless: not at all 3. Trouble falling or staying asleep, or sleeping too much: not at all 4. Feeling tired or having little energy: several days 5. Poor appetite or overeating: several days 6. Feeling bad about yourself - or that you are a failure or have let yourself or your family down: not at all 7. Trouble concentrating on things, such as reading the newspaper or watching television: not at all 8. Moving or speaking so slowly that other people could have noticed. Or the opposite - being so fidgety or restless that you have been moving around a lot more than usual: not at all 9. Thoughts that you would be better off or of hurting yourself in some way: not at all Total score: 2 Depression Screening Interpretation: Negative Depression Screening Done: Yes 40689 - PHQ-9 Billing: Yes Source: Developed by Drs. Bala Torres, Leni Meadows, Raudel Sauer and colleagues, with an educational florecita from [employer]. Thrive Questionnaire Date Thrive assessed: 04/07/25 I am a: Patient What is your living situation today?: I have a steady place to live Within the past 12 months, did the food you bought not last and you didn't have the money to get more?: Never true Within the past 12 months, did you worry whether your food would run out before you got money to buy more?: Never true Do you have trouble paying for medicines?: No Do you have trouble getting transportation to medical appointments?: No Do you have trouble paying your heating and electricity bill?: No Do you have trouble taking care of your child, family member or friend?: No Do you have trouble with day-to-day activities such as bathing, preparing meals, shopping, managing finances, etc.?: No Are you currently unemployed and looking for a job?: No Are you interested in more education?: No Please select the resources that you would like help with: None Currently or been in a relationship where the following occur: No concerns repo rted THRIVE Score: 0 AUDIT C Alcohol Use Questionnaire (AUDIT-C) 1. How often do you have a drink containing alcohol?: Never 3. How often do you have six or more drinks on one occasion?: Never Total Score: 0 Score Reviewed/Action Taken: Yes CARLOS-7 AMB Questionnaire CARLOS-7 Date CARLOS - 7 assessed: 04/07/25 Feeling nervous, anxious, or on edge: 0 = Not at all Not being able to stop or control worryin = Not at all Worrying too much about different things: 0 = Not at all Trouble relaxin = Not at all Being so restless that it is hard to sit still: 0 = Not at all Becoming easily annoyed or irritable: 0 = Not at all Feeling afraid as if something awful might happen: 0 = Not at all Total CARLOS-7 score (0-4 normal; 5-9 mild; 10-14 moderate; 15-21 severe): 0 Source: Developed by Drs. Bala Torrse, Leni Meadows, Raudel Sauer and colleagues, with an educational florecita from [employer]. CARLOS-7 Assessment Billing CARLOS-7 Assessment Tool: CARLOS-7 Assessment 26359 Review of Systems Const Reports no additional complaints, Denies headache(s) and Denies weakness Eyes Details: [facility], wears bifocal ENT Details: Goes dental prophylaxis every 6 months Denies vertigo, Denies dizziness, Denies headache(s), Reports nasal congestion, Denies sinus pressure and Denies sore throat Card Denies chest pain, Denies edema, Denies irregular heart rhythm, Denies lightheadedness and Denies dyspnea Resp Reports as per HPI, Denies dyspnea and Denies wheezing GI Reports no additional complaints Details: Sees [facility], for her routine Pap and pelvic exam Musc Reports no additional complaints Skin/Breast Denies breast pain, Denies breast mass and Denies rash Neuro Denies vertigo, Denies dizziness, Denies headache(s), Denies Sensory deficit (Neuro) and Denies weakness Psych Reports no additional complaints Endo Reports no additional complaints Randy/Lymph Reports no additional complaints Aller/Immun Reports seasonal rhinorrhea and Denies wheezing Physical exam (Primary Care) Vital Signs: Last Vital Signs Pulse 78 04/07/25 14:00 BP 112/74 04/07/25 14:00 Pulse Ox 97 04/07/25 14:00 BMI result Body Mass Index 26.3 Tobacco/Smoking Status: Tobacco use Status Tobacco use date assessed 04/07/25 04/07/25 14:05 Patient Tobacco Use Status Never used Tobacco 04/07/25 14:05 e-Cigarette/Vaping Use Never Used 04/07/25 14:05 PHQ-9: PHQ-9 Score PHQ-9: Total score 2 04/07/25 14:14 Depression Screening Interpretation: Negative Thrive Assessment: Date of Thrive Assessment Date Thrive assessed 04/07/25 04/07/25 14:05 Currently or been in a relationship where the following occur: No concerns reported Const Other: Alert oriented x3, no acute distress, ambulatory with normal gait Orientation/consciousness: patient oriented x3 HENMT Head: Yes normocephalic Ears: external ears normal, TM's normal bilaterally and EAC's normal Face and sinus: Yes face symmetric and No sinus tenderness Mouth: Normal oral and palatal mucosa present and moist mucous membranes Eyes General: appearance normal, both eyes and all related structures Neck Other: Supple, no lymphadenopathy, thyroid gland nontender nonpalpable Chest Chest palpation & inspection: normal inspection of the chest Breast/axilla palpation: normal palpation of the breasts Resp Effort & Inspection: normal respiratory effort and able to speak in complete sentences Auscultation: clear to auscultation bilaterally Cardio Other: S1-S2 present regular rate and rhythm GI Palpation (GI): Soft to palpation, nontender and no guarding Auscultation: normal bowel sounds General: Yes deferred (Goes to [facility] for her routine Pap and pelvic exam) Back/Spine/Pelvis Back: No back tenderness Skin General skin exam: no rashes or lesions noted Neuro General: patient oriented x3, gait normal, moves all extremities, Normal light touch and pain sensation and no focal motor deficits Sensory Exam: No Sensory deficit (Neuro) Extrem General: Yes full ROM, Yes no joint enlargement, Yes no pedal edema, Yes no calf tenderness and Yes normal gait Psych Appearance: grossly normal and well kempt Mental Status: mental status grossly normal Speech and movement: Normal speech and movement present Affect: normal affect Results Reviewed Results Reviewed: Name: Kristin Teresa Age/Sex: 55/F : 1970 Unit#: [id number] Attend Dr: Felipe Rae MD Re03/07/25 Status: DEP REF Location: [facility] Disch: SPEC : [id number] HENRY: 03/07/25 STATUS: COMP REQ : [id number] RECD: 03/07/[address]: Felipe Rae MD COMP: 03/07/25 ENTERED: 03/07/25 [facility] DR: Trudi Duron MD ORDERED: CBC Auto Diff Test Result Flag Reference WBC 4.4 L 4.8-10.8 X10*3/uL RBC 4.62 4.20-5.50 X10*6/uL HGB 12.3 12.0-16.0 g/dl HCT 38.1 37.0-47.0 % MCV 82.5 80.0-98.0 fL MCH 26.6 L 27.0-33.0 pg MCHC 32.3 31.0-35.0 g/dl RDW 14.4 11.0-16.0 % PLT 211 160-400 X10*3/uL MPV 11.3 9.4-12.3 fL Neut Pct Auto 59.2 45-73 % ImGran Pct Auto 0.2 0.0-0.4 % Lymp Pct Auto 29.9 20-40 % Chelan Pct Auto 8.8 2-11 % Eos Pct Auto 0.5 0-4 % Baso Pct Auto 1.4 0-2 % NRBC Pct Auto 0.0 0.0-0.2 /100WBC ANC Neut Abs # 2.6 2.0-8.3 x10*3/uL ImGran Abs Auto 0.01 0.00-0.03 X10*3/uL Lymph Abs Auto 1.3 1.2-4.9 X10*3/uL Chelan Abs Auto 0.4 0.1-1.2 X10*3/uL Eos Abs Auto 0.0 0.0-0.4 X10*3/uL Baso Abs Auto 0.1 0.0-0.2 X10*3/uL NRBC Abs Auto 0.000 0.0-0.012 X10*3/uL Name: Kristin Teresa Age/Sex: 55/F : 1970 Unit#: [id number] Attend Dr: Trudi Duron MD Re04/04/25 Status: DEP REF Location: [facility] Disch: SPEC : [id number] HENRY: 04/04/25 STATUS: COMP REQ : [id number] RECD: 04/04/25-[address] [facility] [address]: Trudi Duron MD COMP: 04/04/255 ENTERED: 04/04/2532 [facility] DR: ORDERED: AST, ALT, Lipid Panel, Vitamin D 25-OH, Free T4, TSH Test Result Flag Reference AST (GOT) 22 5-31 U/L ALT (GPT) 26 0-31 U/L Triglyceride 78 <150 mg/dL Desirable Triglyceride: less than 150 mg/dL Borderline High Triglyceride 150-199 mg/dL High Triglyceride: 200-499 mg/dL Very High Triglyceride: greater than or equal to 5OO mg/dL Cholesterol 223 H <200 mg/dL Desirable Cholesterol: less than 200 mg/dL Borderline High Cholesterol: 200-239 mg/dL High Cholesterol: greater than 239 mg/dL LDL Calculated 123 H <100 mg/dL Desirable LDL: less than 100 mg/dL Near Optimal/Above Optimal LDL: 110-129 mg/dL Borderline High LDL: 130-159 mg/dL High LDL: 160-189 mg/dL Very High LDL: greater than or equal to 190 mg/dL HDL 85 >40 mg/dL Desirable HDL: greater than 40 mg/dL Note: This HDL assay may give artificially low results in patients with liver disease. Vitamin D 25-OH 15.1 L >30 ng/mL Health Based Reference Values* < 20 ng/mL Deficient 20-30 ng/mL Insufficient > 30 ng/mL Sufficient *Jesika STERN. N Engl J Med. 2007;357:266-280 There is no well-established upper level of normal vitamin D levels. Some laboratories use 50 ng/mL as an upper limit of normal. However, toxicity is patient-dependent and may occur at any level. Careful correlation with the patient's presentation is necessary and, if there is concern for vitamin D toxicity, treatment should be considered irrespective of the serum level. Care must be taken in interpreting Vitamin D results from different laboratories and methodologies. Published data demonstrated that results from patients undergoing hemodialysis may show a negative bias when tested with various automated 25-OH vitamin D assays when compared to LC-MS/MS. When testing samples from patients whose predominant form of Vitamin D is Vitamin D2, such as patients receiving Vitamin D2 supplementation, results that are subtherapeutic should be confirmed with another method such as LC-MS/MS. Free T4 0.88 0.71-1.85 ng/dL TSH 3rd Gen. 6.24 H 0.32-4.0 uIU/mL Note: A sustained TSH level above 2.5 uIU/mL may warrant further investigation. TSH 3rd Generation ([facility]) Coding Level of Care Code Est Pt Prev Care 40-64y(29147) Diagnoses Annual visit for general adult medical examination with abnormal findings Z00. Vitamin D deficiency E55.9 Dyslipidemia E78.5 Victorina's thyroiditis E06.3 Mild intermittent asthma without complication J45.20 Asthma complication type: uncomplicated Additional Codes CARLOS-7 Assessment Billing - CARLOS-7 Assessment Tool: CARLOS-7 Assessment 43417 ([id number]) PHQ-9 - 56621 - PHQ-9 Billing: Yes ([id number]) Assessment & Plan Assessment & Plan (1) Annual visit for general adult medical examination with abnormal findings: Code(s): Z00. - Encounter for general adult medical examination with abnormal findings Plan: Reviewed recent fasting lab results with patient. Recommended dental visit every 6 months and regular eye exams, at least every 2 years, goes to [facility]. Take adequate calcium in diet and continue taking high-dose vitamin-D 3 supplements prescribed today, in addition to weight-bearing exercises to help maintain good muscle tone and weight control. Instructed to do self-breast exam, and continue to get yearly mammogram, goes to [facility] for her routine Pap and pelvic exam already has an appointment scheduled for August 2025.. Advised to get her flu vaccine once she is feeling better, does not want to get any COVID booster up-to-date with her Tdap. Cologuard test was done last year which came back with benign findings, repeat Cologuard test again in 2 years (2) Vitamin D deficiency: Code(s): E55.9 - Vitamin D deficiency, unspecified Category: Medical Plan: [place] [address] units cholecalciferol to take once a week for the next 3 months. Once finished taking the prescription, advise patient to continue taking [id number] vitamin-D 3 at 2000 units daily until the spring (3) Dyslipidemia: Code(s): E78.5 - Hyperlipidemia, unspecified Category: Medical Plan: Recent fasting labs are showing results within normal limits except for mildly elevated total cholesterol. Patient has been off rosuvastatin now for the last several months, with no marked increase in her cholesterol levels. Advised to continue adherence to healthy eating habits, getting at least moderate intensity exercise 15 units daily. Will repeat another fasting lipid panel on next visit (4) Victorina's thyroiditis: Code(s): E06.3 - Autoimmune thyroiditis Category: Medical Plan: Currently asymptomatic, continued on levothyroxine 25 mcg daily. (5) Mild intermittent asthma: Code(s): J45.20 - Mild intermittent asthma, uncomplicated Category: Medical Qualifiers: Asthma complication type: uncomplicated Qualified Code(s): J45.20 - Mild intermittent asthma, uncomplicated Plan: Continue with albuterol inhaler as needed and has DuoNeb solution per nebulizer used as needed Medications: New cholecalciferol (vitamin D3) 1,250 mcg PO QWEEK 13 caps 1RF 3 months E55.9 - Vitamin D deficiency, unspecified
--- OUTSIDE RECORDS SUMMARY | 2025-04-07 14:44 | XMS_ITS | Patient Health Record ---
[facility] Address [address] [place] [address] Care Team Providers Care Medical Education Coordinator Name Role Phone Domi DUNN, Trudi Snyder Primary Care Provider Un available Qamar Garcia Unavailable [phone] Allergies Allergen (clinical drug ingredient) Drug/Non Drug [...] Status Risk Notes Problem Acquired hallux valgus (49952460) Hallux valgus (acquired), left foot (M20.12) Active confirmed Problem Acquired hallux valgus (98149046) Hallux valgus (acquired), right foot (M20.11) Active confirmed Problem Acquired hallux rigidus (4324024) Hallux rigidus, left foot (M20.22) Active confirmed Problem Acquired hallux rigidus (7902548) Hallux rigidus, right foot (M20.21) Active confirmed [...] Insured Coverage Start Date Coverage End Date [facility] [place] [place] [address] [id number] Kristin Teresa Self - patient is the insured Medical (General) History Medical History History ICD Code Anemia rheumatoid arthritis asthma Back,Hip,and Knee pain Measles Chicken pox chronic sinusitis covid-19 Headaches/Migraines Hashimotos thyroiditis Surgical History Surgery Date(Month/Year) Dental Implant Hospitalization History Reason Date(Month/Year) [facility]/2021
== END 2025-04-07 14:54 | disposition home or self-care (01) ==
LOC: HO.HMCC 13:18
PROVIDERS: PCP Internal Medicine; Visit Provider Internal Medicine
DX: Z00.01 Encounter for general adult medical examination with abnormal findings (principal); E55.9 Vitamin D deficiency, unspecified; E78.5 Hyperlipidemia, unspecified; E06.3 Autoimmune thyroiditis; J45.20 Mild intermittent asthma, uncomplicated

== ENCOUNTER → 2025-04-07 13:17 | Outpatient (BNVA) | payer BC, SELFPAY | PROVIDERS: PCP Internal Medicine; Visit Provider Internal Medicine | DX: Z00.01 Encounter for general adult medical examination with abnormal findings (principal); J45.20 Mild intermittent asthma, uncomplicated; E55.9 Vitamin D deficiency, unspecified; E06.3 Autoimmune thyroiditis; D72.819 Decreased white blood cell count, unspecified; E78.00 Pure hypercholesterolemia, unspecified; M51.369 Other intervertebral disc degeneration, lumbar region without mention of lumbar back pain or lower extremity pain; E78.5 Hyperlipidemia, unspecified | CPT/HCPCS: 96127 ==